=== PATIENT | female | born 1940 | race Caucasian/White ===

== ENCOUNTER 2017-11-23 22:06 | Inpatient (IN) ==
[2017-11-24] MEDS ORDERED: Dextrose 50% in Water 50 ML Vial IV.PUSH PRN ×2 (00:49→04:42)
[2017-11-24 00:52] LABS: Hematocrit 23.1 % (35.0-46.0); Hemoglobin 7.6 gm/dL (11.6-15.3); Mean Corpuscular Hemoglobin 27.5 pg (27.0-34.0); Mean Corpuscular Volume 83.5 fL (80.0-100.0); Mean Platelet Volume 8.2 fL (7.0-11.0); Platelet Count 203 th/mm3 (150-450); Red Blood Count 2.76 mil/mm3 (4.00-5.30); Red Cell Distribution Width 16.8 % (11.6-17.2); White Blood Count 13.6 th/mm3 (4.0-11.0)
[2017-11-24] MEDS: Norepinephrine Inj 4 MG in Sodium Chlor 0.9% Inj 246 ML IV.SIG PRN (01:04)
[2017-11-24 01:09] LABS: Calcium 8.4 mg/dL (8.5-10.1); Carbon Dioxide 34.1 meq/L (21.0-32.0); Potassium 3.2 meq/L (3.5-5.1)
[2017-11-24] MEDS ORDERED: Magnesium Oxide 400 MG Tablet PO PRN (01:40)
[2017-11-24] MEDS ORDERED: Potassium Phosphate Inj 30 MMOL in Sodium Chlor 0.9% Inj 250 ML IV.SIG PRN (01:40)
[2017-11-24] MEDS ORDERED: Magnesium Sulfate Inj 2 GM in Sodium Chlor 0.9% Inj 96 ML IV.SIG PRN (01:40)
[2017-11-24] MEDS ORDERED: Potassium Chlor 40 mEq Premix 40 MEQ/100 ML PIGGYBACK IV.SIG PRN (01:40)
[2017-11-24] MEDS ORDERED: Potassium Chlor 20 mEq Premix 20 MEQ/100 ML PIGGYBACK IV.SIG PRN ×2 (01:40)
[2017-11-24] MEDS ORDERED: Magnesium Sulfate Inj 4 GM in Sodium Chlor 0.9% Inj 92 ML IV.SIG PRN (01:40)
[2017-11-24] MEDS ORDERED: Potassium Chloride 25 MEQ Effervescent Tablet PO PRN (01:40)
[2017-11-24] MEDS ORDERED: Sodium Phosphate Inj 30 MMOL in Sodium Chlor 0.9% Inj 250 ML IV.SIG PRN (01:40)
[2017-11-24] MEDS ORDERED: Potassium Phosphate 500 MG Soluble Tablet PO PRN ×2 (01:40)
[2017-11-24] MEDS: Potassium Chlor 40 mEq Premix 40 MEQ/100 ML PIGGYBACK IV.SIG PRN ×2 (02:05→06:17)
--- NOTE | 2017-11-24 03:39 | P.CONCC ---
History of Present Illness Service: Critical Care Medicine Consult date: 11/24/17 Requesting Physician: Richard Gr Reason for Consult: hypotension, Afib RVR, GI bleed, Primary Care Provider: Wm Crystal Family Provider: Wm Crystal History of Present Illness: 77 yo female with past medical history of chronic diastolic heart failure, diabetes mellitus, atrial fibrillation and history of bilateral pulmonary embolism 7 years ago on chronic anticoagulation with warfarin, history of breast cancer status post lumpectomy, history of colorectal cancer status post R hemicolectomy by Dr. Mcmullen. She states she had routine lab work performed and her PCP told her to go to the ED due to anemia. At that point she had been experiencing melena with some garry blood in her stools for about 4 days. She states it is not uncommon for her to have some blood in her stools due to history of constipation and rectal fissures. The melena is unusual for her as she had discontinued iron supplementation. She was having one melena stool per day. She had felt fatigued but no vomiting, abdominal pain, chest pain, or SOB. She presented to [facility] on 11/22/17 with hemoglobin of 5.6, platelets 181, INR 4.2. She has received vitamin K 5 mg IV , 2 units of FFP and 2 units of packed red cells. She was hypotensive and started on Levophed. She has developed intermittent pulmonary edema and has been treated with BiPAP and intermittent Lasix. She underwent EGD 11/22/17 that demonstrated normal esophagus, 1 healing antral ulcer, normal duodenum. No obvious source of recent or active bleeding. Colonoscopy demonstrated solid black stool in the rectum, sigmoid and transverse colon. Unable to proceed to the right colon however no active bleeding noted. Patients daughter requested transfer to [facility] because she is known to Dr. Mcmullen from her prior partial colectomy. She was admitted by Dr. Gr. Glass Designer consult was requested because she now has Afib RVR. She has been on levophed 3 mcg/min since arrival. Hgb was 7.6 and she is receiving 1 unit PRBC over 4 hours. She is primarily complaining of restless legs. She says she hasn't had any additional BM's since 11/22. [facility] - History History Provided By: Patient - Medical History Medical History: Medical History (Last Updated 11/24/17 @ 07:20 by Jeny Lu MD) Atrial fibrillation with RVR Diabetes mellitus Diastolic heart failure HX: breast cancer History of colon cancer Hx of radiation therapy Hx pulmonary embolism - Surgical History Surgical History: Surgical History (Last Updated 11/24/17 @ 07:21 by Jeny Lu MD) H/O cardiac catheterization H/O carotid endarterectomy H/O esophagogastroduodenoscopy H/O right hemicolectomy H/O ventral hernia repair Hx of colonoscopy S/P appy - Family History Family History: Family History (Last Updated 11/24/17 @ 07:23 by Jeny Lu MD) Sister Pulmonary embolism Mother Stroke Uterine cancer Father Stroke - Social History I have reviewed the patient's Social History: Yes - Tobacco History Second Hand Smoke Exposure: No Smoking Status: Former smoker Tobacco Type: Cigarettes - Alcohol History How Often Do You Have a Drink Containing Alcohol: Never - Substance Use History Substance History: No History of Abuse Medications and Allergies Active Medications: Active Medications Dextrose (D50w Vial) 50 ml IV.PUSH UNSCH PRN PRN Reason: PER HYPOGLYCEMIA PROTOCOL Glucagon (Glucagon Inj) 1 mg OTHER PRN PRN PRN Reason: for Hypoglycemia Protocol Lactated Ringer's (Lr 1000 Ml Inj) 1,000 mls @ 30 mls/hr IV.SIG .Q24H FIGUEROA Last Admin: 11/24/17 01:03 Dose: 30 mls/hr Norepinephrine Bitartrate 4 mg (/ Sodium Chloride) 250 mls @ 7.5 mls/hr IV.SIG TITRATE PRN; Protocol PRN Reason: Per Protocol Last Admin: 11/24/17 01:04 Dose: 3 mcg/min, 11.25 mls/hr Magnesium Sulfate 4 gm/ Sodium (Chloride) 100 mls @ 50 mls/hr IV.SIG UNSCH PRN PRN Reason: For Magnesium 0.9 - 1.1 mg/dL Magnesium Sulfate 2 gm/ Sodium (Chloride) 100 mls @ 50 mls/hr IV.SIG UNSCH PRN PRN Reason: For Magnesium 1.2 - 1.6 mg/dL Potassium Chloride (Kcl 40 Meq Premix Inj) 40 meq in 100 mls @ 25 mls/hr IV.SIG Q2H PRN PRN Reason: For Potassium 2.8 - 3.2 mEq/L Last Admin: 11/24/17 02:05 Dose: 25 mls/hr Potassium Chloride (Kcl 20 Meq Premix Inj) 20 meq in 100 mls @ 50 mls/hr IV.SIG Q2H PRN PRN Reason: For Potassium 3.3 - 3.5 mEq/L Potassium Chloride (Kcl 40 Meq Premix Inj) 40 meq in 100 mls @ 25 mls/hr IV.SIG UNSCH PRN PRN Reason: For Potassium 3.3 - 3.5 mEq/L Potassium Chloride (Kcl 20 Meq Premix Inj) 20 meq in 100 mls @ 50 mls/hr IV.SIG Q2H PRN PRN Reason: For Potassium 2.8 - 3.2 mEq/L Potassium Phosphate 30 mmol/ (Sodium Chloride) 260 mls @ 42 mls/hr IV.SIG UNSCH PRN PRN Reason: SEE LABEL COMMENTS Sodium Phosphate 30 mmol/ (Sodium Chloride) 260 mls @ 42 mls/hr IV.SIG UNSCH PRN PRN Reason: For Phosphorus < 2.5 mg/dL Insulin Human Regular (Novolin R Correctional Sugar Inj) 0 units SQ Q6HR FIGUEROA; Protocol Magnesium Oxide (Mag-Ox) 800 mg PO UNSCH PRN PRN Reason: For Magnesium 1.2 - 1.6 mg/dL Pantoprazole Sodium (Protonix Inj) 40 mg IV.SIG Q12HR FIGUEROA Potassium Bicarb/Potassium Chloride (K-Lyte Cl Eff) 50 meq PO UNSCH PRN PRN Reason: For Potassium 3.3 - 3.5 mEq/L Potassium Phosphate (K-Phos Original) 2,000 mg PO Q4H PRN PRN Reason: Phosphorus Less Than 2.5 mg/dL Potassium Phosphate (K-Phos Original) 2,000 mg PO UNSCH PRN PRN Reason: SEE LABEL COMMENTS Terbutaline Sulfate (Brethine Inj) 1 mg SQ UNSCH PRN PRN Reason: For Extravasation Allergies Allergy/AdvReac Type Severity Reaction Status Date / Time No Known Allergies Allergy Uncoded 04/29/15 21:07 Home Medications Medication Instructions Recorded Confirmed Type anastrozole 1 mg PO DAILY 11/24/17 11/24/17 History aspirin 81 mg PO DAILY 11/24/17 11/24/17 History calcium carbonate 600 mg PO BID 11/24/17 11/24/17 History folic acid 0.8 mg PO DAILY 11/24/17 11/24/17 History furosemide 40 mg PO DAILY 11/24/17 11/24/17 History insulin NPH and regular human 1 sliding scale dose SUBCUT UD 11/24/17 11/24/17 History [Novolin 70/30 U-100 Insulin] lovastatin 20 mg PO DAILY 11/24/17 11/24/17 History metformin 1,000 mg PO BID 11/24/17 11/24/17 History pioglitazone 30 mg PO DAILY 11/24/17 11/24/17 History ranitidine HCl 300 mg PO DAILY 11/24/17 11/24/17 History warfarin See Label Instructions .ROUTE 11/24/17 11/24/17 History .COMPLEX warfarin See Label Instructions .ROUTE 11/24/17 11/24/17 History .COMPLEX Physical Exam Vital signs: Vital Signs 11/24/17 01:00 11/24/17 02:18 11/24/17 02:35 Temperature 98.4 F 98.3 F Pulse Rate 84 79 88 Respiratory Rate 23 20 16 Blood Pressure 132/61 85/48 L 112/56 L Pulse Oximetry 100 99 100 Intake & Output 11/23/17 11/23/17 11/24/17 06:59 18:59 06:59 Intake Total 0 / 0 Balance 0 / 0 Weight 107.4 kg Intake: Intake (Blood Product) Amt 0 / 0 Rbc As-3 Leukoreduced Unit 0 / 0 [id number] Other: Date of Last Bowel Movement 11/21/17 Weight On Admission 107.4 kg Narrative: GENERAL: Well-nourished, well-developed patient sitting up in bed , distressed about her restless leg movements. SKIN: Warm and dry. HEAD: Atraumatic. Normocephalic. EYES: Pupils equal and round. No scleral icterus. No injection or drainage. ENT: No nasal bleeding or discharge. Mucous membranes pink and moist. NECK: Trachea midline. No JVD. CARDIOVASCULAR: irregularly irregular 2/6 systolic murmur LLSB. RESPIRATORY: Breathing comfortably with no accessory muscle use. CTAB. No wheeze. on NC. GASTROINTESTINAL: Abdomen soft, non-tender, nondistended. Bowel sounds present. MUSCULOSKELETAL: Extremities without clubbing, cyanosis. Trace edema. NEUROLOGICAL: Awake and alert, moving legs repeatedly. Oriented x3. No obvious cranial nerve deficits. Moves all extremities with no focal deficit. Normal speech. Assessment and Plan - Assessment and Plan Plan: NEURO: Restless leg syndrome Ropinirole 0.25 mg po qhs. RESP: Prior history of tobacco abuse Has been on bipap intermittently for pulmonary edema at outside hospital. Currently comfortable on NC. She is agreeable to intubation if needed for respiratory failure. CV: Atrial fibrillation with RVR Coronary artery disease Status post left carotid endarterectomy Chronic diastolic heart failure Troponin at outside hospital was within normal range range for their lab. BNP was 460. Lactic acid was 1.4 On Levophed to maintain mean arterial pressure greater than 65 Initiating digoxin for rate control. Follow-up digoxin level in a.m. 11/25. Lasix 40 mg p.o. daily GI: GI bleeding Chronic constipation GERD History of right hemicolectomy for colon cancer EGD and colonoscopy at outside hospital were unrevealing. May be small bowel source of bleeding. Serial hemoglobin, resuscitating with packed red cells and avoiding excessive crystalloid resuscitation in view of diastolic heart failure NPO with diet advancement per colorectal surgery. Workup for bleeding per colorectal surgery. Continue Protonix 40 mill grams p.o. twice daily. FEN/RENAL: Garcia is in place per outside hospital. Monitor intake and output. Monitor electrolytes and replace as indicated per electrolyte replacement protocol. ID: White blood cell count at outside hospital was 6.2 on 11/22. Urinalysis was negative. She has been on Zosyn empirically for the possibility of sepsis. She does not appear to be septic. Contacted outside hospital. There were no blood cultures drawn. Noted she does have leukocytosis now, would recommend R femoral line be changed to R subclavian or IJ. Will check blood cultures now. I am holding off on antibiotics at this time. If it is determined antibiotics will be needed, would avoid Zosyn because sodium load will exacerbate her issues with pulmonary edema/overload. Check UA now. HEME: On chronic anti-coagulation with warfarin. INR was supratherapeutic 11/22 (4.2) History of bilateral pulmonary emboli, reportedly unprovoked and on life long anticoagulation for this according to patient (she is not aware of prior diagnosis of Afib) History of breast cancer status post lumpectomy and radiation. On anastrozole. History of colorectal cancer status post right hemicolectomy ENDO: Insulin-dependent diabetes mellitus Monitor bedside glucose every 6 hours and administer low-dose insulin sliding scale as indicated. PROPH: SCD for DVT prophylaxis. Avoid pharmacologic DVT prophylaxis at this point due to concern for hemorrhage. Protonix as per above ACCESS: Right femoral central venous line was placed 11/23/17 by mud mixer operator at [facility] She is capacitated for medical decision-making. She says she is DNR in the event of pulseless arrest. She would be agreeable to intubation if needed for GI procedure or if she develops respiratory distress. Alternate code intubation only Level 3 consult
[2017-11-24] MEDS ORDERED: Digoxin Inj 500 MCG/2 ML Ampul IV.PUSH ONE (04:36)
[2017-11-24 05:27] LABS: Hematocrit 25.6 % (35.0-46.0); Hemoglobin 8.5 gm/dL (11.6-15.3)
[2017-11-24 05:38] LABS: Activated Partial Thrombo Time 25.6 sec (24.3-30.1); INR 1.3 Ratio; Prothrombin Time 12.9 sec (9.8-11.6)
[2017-11-24] MEDS ORDERED: Insulin NovoLIN Regular Correctional Sugar Inj SQ SCH (06:00)
--- NOTE | 2017-11-24 06:54 | XR ---
EXAM DATE: 11/24/2017 12:00 AM EDT AGE/SEX: 77 years / Female INDICATIONS: Shortness of breath. CLINICAL DATA: This is the patient's subsequent encounter. Patient reports that signs and symptoms h ave been present for 2 days and indicates a pain score of 0/10. MEDICAL/SURGICAL HISTORY: Hypertension. Diabetes mellitus type II. Chronic obstructive pulmon marga disease. Congestive heart failure. None. COMPARISON: [facility], CHEST 1V SINGLE AP, 10/23/2017. . FINDINGS: The heart size is enlarged. There is mild increased density at the medial right base. Costophrenic an gles are clear. Clips are seen in the left axillary region. CONCLUSION: Cardiomegaly. Mild consolidation or atelectasis at the medial right base. Electronically signed by: Richard Morris MD 11/24/2017 6:52 AM EDT
[2017-11-24 07:46] LABS: Bilirubin,Urine Negative (Negative); Clarity,Urine Clear (Clear); Color,Urine Straw (Yellw/Straw); Glucose,Urine (UA) 150 mg/dL (Negative); Leukocyte Esterase,Urine Negative (Negative); Mucus,Urine Few /lpf (Occasional); Nitrite,Urine Negative (Negative); Specific Gravity,Urine 1.006 (1.002-1.035)
[2017-11-24] MEDS: Pantoprazole Inj 40 MG Vial IV.SIG SCH ×2 (08:37→20:24)
[2017-11-24] MEDS: Senna/Docusate Sodium 8.6/50 MG Tablet PO SCH ×2 (08:37→20:23)
[2017-11-24] MEDS: Folic Acid 1 MG Tablet PO SCH (08:37)
--- NOTE | 2017-11-24 09:33 | MH ---
cc: Richard Gr MD, Cheryl M MD DATE OF ADMISSION: 11/23/2017 CHIEF COMPLAINT: Lower GI bleed. HISTORY OF PRESENT ILLNESS: This 77-year-old patient is well known to our service. Dr. Mcmullen did an ascending colectomy on her in 02/2015 for a colon carcinoma. She has had no evidence of recurrence and has followed up with Dr. Mcmullen since that time. She had a followup colonoscopy by Dr. Mcmullen in 11/2016 showing only diverticulosis and no evidence of any recurrence. The patient has a past history of chronic diastolic heart failure, diabetes mellitus, atrial fibrillation, history of bilateral pulmonary emboli 7 years ago, and has had breast cancer. She has been on chronic anticoagulation with Coumadin. She had routine lab work performed with her primary care physician approximately 3-4 days ago, her hemoglobin was around 7.1. At that time, he told her to go to the emergency room due to anemia. At that point, she had been experiencing some small amounts of blood, sometimes black. She attributes this to her hemorrhoids. She says that she is constipated chronically and does not pay much attention to it. When she went to the emergency department a couple of days ago, her hemoglobin was down to 5.9. She had had no profuse GI bleeding and this seems mostly to be a chronic anemia. She was hypertherapeutic with her Coumadin. Her INR at that time was 4.2. She received vitamin K and 2 units of fresh frozen plasma as well as 2 units of packed red blood cells. Her hemoglobin yesterday at 6 p.m. was 7.9. The patient was comfortable, according to Dr. Thorne, the transferring physician from [facility] and she had undergone an upper GI endoscopy and a colonoscopy that seems as if they saw the whole colon, according to Dr. Thorne, but the family was under some perception that they did not see everything. Of course, the small bowel, cannot be visualized on endoscopy. Nevertheless, she was not having any active bleeding and we accepted her in transfer. On arrival, she was found to have a hemoglobin of 7.6 and a unit of packed red blood cells was transfused. In the meantime, she developed some mild rapid ventricular rate with her atrial fibrillation and critical care associate producer was consulted. Dr. Lu saw the patient and evaluated her, and the unit of blood was completed. The patient says that she is chronically constipated. She uses MiraLax and has not had a bowel motion for 2 days. Also, on arrival, she was on this low dose of Levophed, which has been tapered down somewhat. She has a femoral line present that was placed the day prior to this dictation in [place]. Past medical history, family history, social history, review of systems is seen in the HPI. Again, she has had a carotid endarterectomy, right hemicolectomy, breast cancer, diastolic heart failure, diabetes, atrial fibrillation, pulmonary embolism. PHYSICAL EXAMINATION: GENERAL: Well-developed, obese female in no acute distress. SKIN: Warm and dry. HEENT: Extraocular muscles intact. NECK: Supple. ABDOMEN: Obese, soft, nontender, no masses. She does have a right-sided scar from her previous hemicolectomy. She may have a ventral hernia present there, although there is nothing incarcerated there. She has no abdominal pain. RECTAL: Reveals a large amount of solid stool in the rectum, which is brown in nature. There is no blood or black stool present on digital exam. EXTREMITIES: Range of motion within normal limits. NEUROLOGIC: Grossly normal. IMPRESSION: A 77-year-old patient with multiple medical problems with a chronic lower gastrointestinal bleed, possibly related only to her hemorrhoids, on anticoagulation, since she has a large amount of solid stool, which is basically brown in her rectum. It does not appear to be typical of diverticular GI bleed. She is stable from her bleeding standpoint and Critical Care Medicine is reviewing her heart status and Levophed, and they will deal with her femoral lines and so forth. We will not place her on anticoagulation at this time. I will start her on full liquids today, but I think that we can rapidly move her diet up and get her out of bed, so that she does not become deconditioned. I do not think at this time, she needs any endoscopy as she does not appear to be acutely bleeding and it is highly unlikely that this is recurrent carcinoma. MD JNUAID Hrebert/sumaya , 08:54 AM , 09:05 AM
[2017-11-24] MEDS: Anastrozole 1 MG Tablet PO SCH (09:39)
--- NOTE | 2017-11-24 09:48 | ECG ---
Date Performed: 11/24/2017 Time Performed: 03:13:54 PTAGE: 77 years EKG: Atrial fibrillation with rapid ventricular response with multifocal PVCs or aberrant ventri cular conduction Leftward axis IV conduction defect Possible lateral infarct - age undetermined LVH w ith secondary repolarization abnormality Nonspecific ST and T wave abnormalities Abnormal ECG Compare d to prior electrocardiogram, Atrial fibrillation has replaced Sinus rhythm . DOCTOR: Amari Cannon Interpretating Date/Time 11/24/2017 09:46:28
[2017-11-24] MEDS: Insulin NovoLOG Aspart Correctional Sugar Inj SQ SCH ×4 (10:15→20:59)
[2017-11-24] MEDS: Polyethylene Glycol 3350 17 GM Packet PO SCH ×3 (10:56→19:11)
[2017-11-24 12:22] LABS: Hematocrit 25.7 % (35.0-46.0); Hemoglobin 8.6 gm/dL (11.6-15.3)
[2017-11-24] MEDS: Digoxin Inj 500 MCG/2 ML Ampul IV.PUSH SCH ×2 (16:20→22:47)
[2017-11-24 19:54] LABS: Hematocrit 28.2 % (35.0-46.0); Hemoglobin 9.1 gm/dL (11.6-15.3)
[2017-11-24] MEDS: Acetaminophen 325 MG Tablet PO PRN (21:12)
[2017-11-25] MEDS: Norepinephrine Inj 4 MG in Sodium Chlor 0.9% Inj 246 ML IV.SIG PRN (00:10)
[2017-11-25 01:10] LABS: Hematocrit 25.4 % (35.0-46.0); Hemoglobin 8.3 gm/dL (11.6-15.3)
[2017-11-25] MEDS ORDERED: Chlorhexidine Gluconate 2% 1 Pack (2 Cloths) TOPICAL PRN (04:00)
[2017-11-25] MEDS: Chlorhexidine Gluconate 2% 1 Pack (2 Cloths) TOPICAL SCH (04:52)
[2017-11-25 04:58] LABS: Baso # (Auto) 0.1 th/mm3 (0.0-0.2); Baso % (Auto) 0.8 % (0.0-2.0); Eos # (Auto) 0.3 th/mm3 (0.0-0.4); Eos % (Auto) 3.6 % (0.0-4.0); Hematocrit 25.7 % (35.0-46.0); Hemoglobin 8.3 gm/dL (11.6-15.3); Lymph # (Auto) 2.8 th/mm3 (1.0-4.8); Lymph % (Auto) 35.8 % (9.0-44.0); Mean Corpuscular HGB Conc 32.1 % (32.0-36.0); Mean Corpuscular Hemoglobin 27.2 pg (27.0-34.0); Mean Corpuscular Volume 84.6 fL (80.0-100.0); Mean Platelet Volume 7.9 fL (7.0-11.0); Mono # (Auto) 0.9 th/mm3 (0.0-0.9); Mono % (Auto) 11.1 % (0.0-8.0); Neut # (Auto) 3.8 th/mm3 (1.8-7.7); Neut % (Auto) 48.7 % (16.0-70.0); Platelet Count 131 th/mm3 (150-450); Red Blood Count 3.04 mil/mm3 (4.00-5.30); Red Cell Distribution Width 16.7 % (11.6-17.2); White Blood Count 7.9 th/mm3 (4.0-11.0)
[2017-11-25 05:32] LABS: Calcium 8.9 mg/dL (8.5-10.1); Carbon Dioxide 32.7 meq/L (21.0-32.0); Potassium 3.9 meq/L (3.5-5.1)
[2017-11-25] MEDS: Insulin NovoLOG Aspart Correctional Sugar Inj SQ SCH ×4 (07:58→21:28)
[2017-11-25] MEDS: Anastrozole 1 MG Tablet PO SCH (08:06)
[2017-11-25] MEDS: Folic Acid 1 MG Tablet PO SCH (08:06)
[2017-11-25] MEDS: Furosemide 40 MG Tablet PO SCH (08:06)
[2017-11-25] MEDS: Polyethylene Glycol 3350 17 GM Packet PO SCH ×3 (08:06→17:51)
[2017-11-25] MEDS: Pantoprazole Inj 40 MG Vial IV.SIG SCH ×2 (08:07→21:29)
[2017-11-25] MEDS: Senna/Docusate Sodium 8.6/50 MG Tablet PO SCH ×2 (08:07→21:28)
[2017-11-25 13:02] LABS: Hematocrit 29.2 % (35.0-46.0); Hemoglobin 9.4 gm/dL (11.6-15.3)
--- NOTE | 2017-11-25 16:40 | P.PNCC ---
Subjective Subjective Remarks/Hospital Course: 77 yo female with past medical history of chronic diastolic heart failure, diabetes mellitus, atrial fibrillation and history of bilateral pulmonary embolism 7 years ago on chronic anticoagulation with warfarin, history of breast cancer status post lumpectomy, history of colorectal cancer status post R hemicolectomy by Dr. Mcumllen. She states she had routine lab work performed and her PCP told her to go to the ED due to anemia. At that point she had been experiencing melena with some garry blood in her stools for about 4 days. She states it is not uncommon for her to have some blood in her stools due to history of constipation and rectal fissures. The melena is unusual for her as she had discontinued iron supplementation. She was having one melena stool per day. She had felt fatigued but no vomiting, abdominal pain, chest pain, or SOB. She presented to [facility] on 11/22/17 with hemoglobin of 5.6, platelets 181, INR 4.2. She has received vitamin K 5 mg IV , 2 units of FFP and 2 units of packed red cells. She was hypotensive and started on Levophed. She has developed intermittent pulmonary edema and has been treated with BiPAP and intermittent Lasix. She underwent EGD 11/22/17 that demonstrated normal esophagus, 1 healing antral ulcer, normal duodenum. No obvious source of recent or active bleeding. Colonoscopy demonstrated solid black stool in the rectum, sigmoid and transverse colon. Unable to proceed to the right colon however no active bleeding noted. Patients daughter requested [place] [facility] because she is known to Dr. Mcmullen from her prior partial colectomy. She was admitted by Dr. Gr. Lineman A Class consult was requested because she now has Afib RVR. She has been on levophed 3 mcg/min since arrival. Hgb was 7.6 and she is receiving 1 unit PRBC over 4 hours. She is primarily complaining of restless legs. She says she hasn't had any additional BM's since 11/22. 11/25: Hemoglobin stable. No signs of bleeding. Breathing with acceptable comfort. Levophed has been off intermittently but her mean arterial pressure eventually drops below 65. Her urine output has remained excellent. Objective Vital Signs / I&O: Vital Signs 11/24/17 20:00 11/24/17 20:17 11/24/17 21:00 Temperature 98.0 F Pulse Rate 74 82 Respiratory Rate Blood Pressure 105/50 L 116/55 L Pulse Oximetry 100 100 97 11/24/17 21:40 11/24/17 22:00 11/24/17 23:00 Temperature Pulse Rate 80 72 Respiratory Rate 19 Blood Pressure 110/52 L 140/65 Pulse Oximetry 95 96 11/25/17 00:00 11/25/17 01:00 11/25/17 02:00 Temperature 98.2 F Pulse Rate 72 68 72 Respiratory Rate Blood Pressure 87/45 L 115/62 121/58 L Pulse Oximetry 98 96 96 11/25/17 03:00 11/25/17 04:00 11/25/17 05:00 Temperature 98.2 F Pulse Rate 65 66 64 Respiratory Rate Blood Pressure 128/60 151/69 H 119/53 L Pulse Oximetry 95 98 95 11/25/17 06:00 11/25/17 08:00 11/25/17 12:00 Temperature 98 F 97.9 F Pulse Rate 84 66 72 Respiratory Rate 11 L 21 Blood Pressure 142/63 H 135/60 74/40 L Pulse Oximetry 93 L 100 100 Intake & Output 11/24/17 11/25/17 11/25/17 18:59 06:59 18:59 Intake Total 500 / 500 1250 / 1250 Output Total 1250 / 1250 Balance -750 / -750 1250 / 1250 Weight 109.2 kg Intake: IV 100 / 100 1250 / 1250 LR 1000 mL Inj 1,000 ML @ 30 1000 / 1000 mls/hr IV.SIG .Q24H FIGUEROA Rx#: [id number] Levophed Inj 4 MG In NS Inj 246 250 / 250 ML @ 2 MCG/MIN 7.5 mls/hr IV. SIG TITRATE PRN Rx#:[id number] KCl 40 mEq Premix Inj 40 meq In 100 / 100 100 ml @ 25 mls/hr IV.SIG Q2H PRN Rx#:[id number] Intake (Blood Product) Amt 400 / 400 Rbc As-3 Leukoreduced Unit 400 / 400 [id number] Output: Urine Amount (Catheter) 1250 / 1250 Indwelling Urethral Catheter 1250 / 1250 Other: Date of Last Bowel Movement 11/21/17 11/21/17 11/21/17 Result Diagrams: 11/25/17 12:30 11/25/17 04:30 Objective Remarks: Narrative: GENERAL: Well-nourished, well-developed patient sitting up in bed, distressed about her restless leg movements. SKIN: Warm and dry. HEAD: Atraumatic. Normocephalic. EYES: Pupils equal and round. No scleral icterus. No injection or drainage. ENT: No nasal bleeding or discharge. Mucous membranes pink and moist. NECK: Trachea midline. Airway widely patent, no obstructive noises. CARDIOVASCULAR: irregularly irregular 2/6 systolic murmur left sternal border and apex. RESPIRATORY: Breathing comfortably with no accessory muscle use. CTAB. No wheeze. on NC. GASTROINTESTINAL: Abdomen soft, non-tender, nondistended. Bowel sounds present. MUSCULOSKELETAL: Extremities without clubbing, cyanosis. Trace edema. Well- perfused. NEUROLOGICAL: Awake and alert, moving legs repeatedly. Oriented x3. No obvious cranial nerve deficits. Moves all extremities with no focal deficit. Normal speech. Assessment and Plan - Assessment and Plan Plan: NEURO: Restless leg syndrome Ropinirole 0.25 mg po qhs. RESP: Prior history of tobacco abuse Has been on bipap intermittently for pulmonary edema at outside hospital. Currently comfortable on NC. She is agreeable to intubation if needed for respiratory failure. CV: Atrial fibrillation with RVR Coronary artery disease Status post left carotid endarterectomy Chronic diastolic heart failure Troponin at outside hospital was within normal range range for their lab. BNP was 460. Lactic acid was 1.4 On Levophed to maintain mean arterial pressure greater than 65 Initiating digoxin for rate control. Follow-up digoxin level in a.m. 11/25. Lasix 40 mg p.o. daily GI: GI bleeding Chronic constipation GERD History of right hemicolectomy for colon cancer EGD and colonoscopy at outside hospital were unrevealing. May be small bowel source of bleeding. Serial hemoglobin, resuscitating with packed red cells and avoiding excessive crystalloid resuscitation in view of diastolic heart failure NPO with diet advancement per colorectal surgery. Workup for bleeding per colorectal surgery. Continue Protonix 40 mill grams p.o. twice daily. FEN/RENAL: Garcia is in place per outside hospital. Monitor intake and output. Monitor electrolytes and replace as indicated per electrolyte replacement protocol. Discontinue Garcia anytime. ID: White blood cell count at outside hospital was 6.2 on 11/22. Urinalysis was negative. She has been on Zosyn empirically for the possibility of sepsis. She does not appear to be septic. Contacted outside hospital. There were no blood cultures drawn. Noted she does have leukocytosis now, would recommend R femoral line be changed to R subclavian or IJ. Will check blood cultures now. I am holding off on antibiotics at this time. If it is determined antibiotics will be needed, would avoid Zosyn because sodium load will exacerbate her issues with pulmonary edema/overload. Check UA now. HEME: On chronic anti-coagulation with warfarin. INR was supratherapeutic 11/22 (4.2) History of bilateral pulmonary emboli, reportedly unprovoked and on life long anticoagulation for this according to patient (she is not aware of prior diagnosis of Afib) History of breast cancer status post lumpectomy and radiation. On anastrozole. History of colorectal cancer status post right hemicolectomy ENDO: Insulin-dependent diabetes mellitus Monitor bedside glucose every 6 hours and administer low-dose insulin sliding scale as indicated. PROPH: SCD for DVT prophylaxis. Avoid pharmacologic DVT prophylaxis at this point due to concern for hemorrhage. Protonix as per above ACCESS: Right femoral central venous line was placed 11/23/17 by padding gluer at [facility]. Discontinued today. She is capacitated for medical decision-making. She says she is DNR in the event of pulseless arrest. She would be agreeable to intubation if needed for GI procedure or if she develops respiratory distress. Overall impression: Patient is warm and well-perfused with good urine output. Will attempt mid a drain just to allow us to get off the levo fed. Otherwise stable and breathing comfortably.
--- NOTE | 2017-11-25 16:55 | P.PNCS ---
Subjective Interval history: afebrile, VSS UO good NO BRB acosta PO Objective Result Diagrams: 11/25/17 12:30 11/25/17 04:30 Objective Remarks: PE alert Abd - soft, obese, non-tender, no bleeding Assessment and Plan - Plan Imp: HR slowed acosta POlax avoid straining DC plans
[2017-11-25 18:38] LABS: Hematocrit 24.9 % (35.0-46.0); Hemoglobin 8.3 gm/dL (11.6-15.3)
[2017-11-26] MEDS: Chlorhexidine Gluconate 2% 1 Pack (2 Cloths) TOPICAL SCH (03:46)
[2017-11-26] MEDS: Polyethylene Glycol 3350 17 GM Packet PO SCH ×3 (09:06→17:41)
[2017-11-26] MEDS: Folic Acid 1 MG Tablet PO SCH (09:06)
[2017-11-26] MEDS: Senna/Docusate Sodium 8.6/50 MG Tablet PO SCH ×2 (09:06→20:16)
[2017-11-26] MEDS: Furosemide 40 MG Tablet PO SCH (09:06)
[2017-11-26] MEDS: Anastrozole 1 MG Tablet PO SCH (09:06)
[2017-11-26] MEDS: Pantoprazole Inj 40 MG Vial IV.SIG SCH ×2 (09:07→20:15)
[2017-11-26] MEDS: Insulin NovoLOG Aspart Correctional Sugar Inj SQ SCH ×4 (09:31→20:16)
--- NOTE | 2017-11-26 13:05 | P.PNCC ---
Subjective Subjective Remarks/Hospital Course: 77 yo female with past medical history of chronic diastolic heart failure, diabetes mellitus, atrial fibrillation and history of bilateral pulmonary embolism 7 years ago on chronic anticoagulation with warfarin, history of breast cancer status post lumpectomy, history of colorectal cancer status post R hemicolectomy by Dr. Mcmullen. She states she had routine lab work performed and her PCP told her to go to the ED due to anemia. At that point she had been experiencing melena with some garry blood in her stools for about 4 days. She states it is not uncommon for her to have some blood in her stools due to history of constipation and rectal fissures. The melena is unusual for her as she had discontinued iron supplementation. She was having one melena stool per day. She had felt fatigued but no vomiting, abdominal pain, chest pain, or SOB. She presented to [facility] on 11/22/17 with hemoglobin of 5.6, platelets 181, INR 4.2. She has received vitamin K 5 mg IV , 2 units of FFP and 2 units of packed red cells. She was hypotensive and started on Levophed. She has developed intermittent pulmonary edema and has been treated with BiPAP and intermittent Lasix. She underwent EGD 11/22/17 that demonstrated normal esophagus, 1 healing antral ulcer, normal duodenum. No obvious source of recent or active bleeding. Colonoscopy demonstrated solid black stool in the rectum, sigmoid and transverse colon. Unable to proceed to the right colon however no active bleeding noted. Patients daughter requested transfer to [facility] because she is known to Dr. Mcmullen from her prior partial colectomy. She was admitted by Dr. Gr. Rehabilitation Tech consult was requested because she now has Afib RVR. She has been on levophed 3 mcg/min since arrival. Hgb was 7.6 and she is receiving 1 unit PRBC over 4 hours. She is primarily complaining of restless legs. She says she hasn't had any additional BM's since 11/22. 11/25: Hemoglobin stable. No signs of bleeding. Breathing with acceptable comfort. Levophed has been off intermittently but her mean arterial pressure eventually drops below 65. Her urine output has remained excellent. 11/26: Hemoglobin stable. Remains warm and well-perfused. Levo fed off for 24 hours but she has required Midodrine. Can probably taper off Midodrine over 2- 3 days. Glucose not well controlled. Now that she is eating better and more reliably we will restart her Novolin 70/30 twice daily. It is also safe to restart her metformin twice daily at this time. She takes Farxiga at home and can restart that when she gets home. Objective Vital Signs / I&O: Vital Signs 11/25/17 16:00 11/25/17 20:00 11/26/17 00:00 Temperature 97.9 F 98.0 F 98.3 F Pulse Rate 80 70 71 Respiratory Rate 22 23 12 Blood Pressure 159/68 H 92/42 L 103/47 L Pulse Oximetry 98 100 97 11/26/17 04:00 Temperature 98.2 F Pulse Rate 60 Respiratory Rate 14 Blood Pressure 92/55 L Pulse Oximetry 96 Intake & Output 11/25/17 11/26/17 11/26/17 18:59 06:59 18:59 Intake Total 520 / 520 1000 / 1000 Output Total 1000 / 1000 700 / 700 Balance -480 / -480 300 / 300 Weight 110.7 kg Intake: IV 1000 / 1000 LR 1000 mL Inj 1,000 ML @ 30 1000 / 1000 mls/hr IV.SIG .Q24H FIGUEROA Rx#: [id number] Oral 520 / 520 Output: Urine Amount (Catheter) 1000 / 1000 700 / 700 Indwelling Urethral Catheter 1000 / 1000 700 / 700 Other: Date of Last Bowel Movement 11/21/17 11/21/17 11/21/17 # Bowel Movements 0 Result Diagrams: 11/25/17 18:00 11/25/17 04:30 Objective Remarks: Narrative: GENERAL: Alert, conversant. SKIN: Warm and dry. HEAD: Atraumatic. Normocephalic. EYES: Pupils equal and round. No scleral icterus. No injection or drainage. ENT: No nasal bleeding or discharge. Mucous membranes pink and moist. NECK: Trachea midline. Airway widely patent, no obstructive noises. CARDIOVASCULAR: irregularly irregular 2/6 systolic murmur left sternal border and apex. Ventricular response rate well controlled. RESPIRATORY: Breathing comfortably with no accessory muscle use. CTAB. No wheeze. on NC. GASTROINTESTINAL: Abdomen soft, non-tender, nondistended. Bowel sounds present. No guarding. MUSCULOSKELETAL: Extremities without clubbing, cyanosis. Trace edema. Well- perfused. NEUROLOGICAL: Awake and alert. Oriented x3. No obvious cranial nerve deficits. Moves all extremities with no focal deficit. Normal speech. Assessment and Plan - Assessment and Plan Plan: NEURO: Restless leg syndrome Ropinirole 0.25 mg po qhs. RESP: Prior history of tobacco abuse Has been on bipap intermittently for pulmonary edema at outside hospital. Currently comfortable on NC. She is agreeable to intubation if needed for respiratory failure. CV: Atrial fibrillation with RVR Coronary artery disease Status post left carotid endarterectomy Chronic diastolic heart failure Troponin at outside hospital was within normal range range for their lab. BNP was 460. Lactic acid was 1.4 On Levophed to maintain mean arterial pressure greater than 65 Initiating digoxin for rate control. Follow-up digoxin level in a.m. 11/25. Continue Lasix 40 mg p.o. daily GI: GI bleeding Chronic constipation GERD History of right hemicolectomy for colon cancer EGD and colonoscopy at outside hospital were unrevealing. May be small bowel source of bleeding. Serial hemoglobin, resuscitating with packed red cells and avoiding excessive crystalloid resuscitation in view of diastolic heart failure NPO with diet advancement per colorectal surgery. Workup for bleeding per colorectal surgery. Continue Protonix 40 mill grams p.o. twice daily. FEN/RENAL: Garcia is in place per outside hospital. Monitor intake and output. Monitor electrolytes and replace as indicated per electrolyte replacement protocol. Discontinue Garcia anytime. ID: White blood cell count at outside hospital was 6.2 on 11/22. Urinalysis was negative. She has been on Zosyn empirically for the possibility of sepsis. She does not appear to be septic. Contacted outside hospital. There were no blood cultures drawn. Noted she does have leukocytosis now, would recommend R femoral line be changed to R subclavian or IJ. Will check blood cultures now. I am holding off on antibiotics at this time. If it is determined antibiotics will be needed, would avoid Zosyn because sodium load will exacerbate her issues with pulmonary edema/overload. Check UA now. HEME: On chronic anti-coagulation with warfarin. INR was supratherapeutic 11/22 (4.2) History of bilateral pulmonary emboli, reportedly unprovoked and on life long anticoagulation for this according to patient (she is not aware of prior diagnosis of Afib) History of breast cancer status post lumpectomy and radiation. On anastrozole. History of colorectal cancer status post right hemicolectomy ENDO: Insulin-dependent diabetes mellitus Monitor bedside glucose every 6 hours and administer low-dose insulin sliding scale as indicated. Restarted Novolin units twice daily, restarted metformin 1000 mg p.o. twice daily. PROPH: SCD for DVT prophylaxis. Avoid pharmacologic DVT prophylaxis at this point due to concern for hemorrhage. Protonix as per above ACCESS: Right femoral central venous line was placed 11/23/17 by game manager at [facility]. Discontinued 2 days ago. She is capacitated for medical decision-making. She says she is DNR in the event of pulseless arrest. She would be agreeable to intubation if needed for GI procedure or if she develops respiratory distress. Overall impression: Patient is warm and well-perfused with good urine output. She is now off levo fed for over 24 hours and doing well on Midodrine. We will taper this off now. Blood sugar well be much more well controlled on her home insulin regimen now.
--- NOTE | 2017-11-26 21:38 | P.PNCS ---
Subjective Interval history: afebrile, VSS UO good no BRB Objective Result Diagrams: 11/25/17 18:00 11/25/17 04:30 Objective Remarks: PE alert Abd - soft, obese, non-tender, no bleeding Assessment and Plan - Plan Imp: HR slowed acosta PO lax - incr dose avoid straining DC plans
[2017-11-26] MEDS: Acetaminophen 325 MG Tablet PO PRN (22:25)
[2017-11-27] MEDS: Chlorhexidine Gluconate 2% 1 Pack (2 Cloths) TOPICAL SCH (03:44)
[2017-11-27 05:32] LABS: Baso # (Auto) 0.1 th/mm3 (0.0-0.2); Baso % (Auto) 0.9 % (0.0-2.0); Eos # (Auto) 0.2 th/mm3 (0.0-0.4); Eos % (Auto) 3.8 % (0.0-4.0); Hematocrit 25.3 % (35.0-46.0); Hemoglobin 8.4 gm/dL (11.6-15.3); Lymph # (Auto) 2.5 th/mm3 (1.0-4.8); Lymph % (Auto) 39.8 % (9.0-44.0); Mean Corpuscular HGB Conc 33.1 % (32.0-36.0); Mean Corpuscular Hemoglobin 27.7 pg (27.0-34.0); Mean Corpuscular Volume 83.6 fL (80.0-100.0); Mean Platelet Volume 7.9 fL (7.0-11.0); Mono # (Auto) 0.7 th/mm3 (0.0-0.9); Mono % (Auto) 11.3 % (0.0-8.0); Neut # (Auto) 2.7 th/mm3 (1.8-7.7); Neut % (Auto) 44.2 % (16.0-70.0); Platelet Count 121 th/mm3 (150-450); Red Blood Count 3.02 mil/mm3 (4.00-5.30); Red Cell Distribution Width 17.6 % (11.6-17.2); White Blood Count 6.2 th/mm3 (4.0-11.0)
--- NOTE | 2017-11-27 08:05 | P.PNCC ---
Subjective Subjective Remarks/Hospital Course: 77 yo female with past medical history of chronic diastolic heart failure, diabetes mellitus, atrial fibrillation and history of bilateral pulmonary embolism 7 years ago on chronic anticoagulation with warfarin, history of breast cancer status post lumpectomy, history of colorectal cancer status post R hemicolectomy by Dr. Mcmullen. She states she had routine lab work performed and her PCP told her to go to the ED due to anemia. At that point she had been experiencing melena with some garry blood in her stools for about 4 days. She states it is not uncommon for her to have some blood in her stools due to history of constipation and rectal fissures. The melena is unusual for her as she had discontinued iron supplementation. She was having one melena stool per day. She had felt fatigued but no vomiting, abdominal pain, chest pain, or SOB. She presented to [facility] on 11/22/17 with hemoglobin of 5.6, platelets 181, INR 4.2. She has received vitamin K 5 mg IV , 2 units of FFP and 2 units of packed red cells. She was hypotensive and started on Levophed. She has developed intermittent pulmonary edema and has been treated with BiPAP and intermittent Lasix. She underwent EGD 11/22/17 that demonstrated normal esophagus, 1 healing antral ulcer, normal duodenum. No obvious source of recent or active bleeding. Colonoscopy demonstrated solid black stool in the rectum, sigmoid and transverse colon. Unable to proceed to the right colon however no active bleeding noted. Patients daughter requested transfer to [facility] because she is known to Dr. Mcmullen from her prior partial colectomy. She was admitted by Dr. Gr. Joint Finisher consult was requested because she now has Afib RVR. She has been on levophed 3 mcg/min since arrival. Hgb was 7.6 and she is receiving 1 unit PRBC over 4 hours. She is primarily complaining of restless legs. She says she hasn't had any additional BM's since 11/22. 11/25: Hemoglobin stable. No signs of bleeding. Breathing with acceptable comfort. Levophed has been off intermittently but her mean arterial pressure eventually drops below 65. Her urine output has remained excellent. 11/26: Hemoglobin stable. Remains warm and well-perfused. Levo fed off for 24 hours but she has required Midodrine. Can probably taper off Midodrine over 2- 3 days. Glucose not well controlled. Now that she is eating better and more reliably we will restart her Novolin 70/30 twice daily. It is also safe to restart her metformin twice daily at this time. She takes Farxiga at home and can restart that when she gets home. Subjective 11/27: Remains off norepinephrine drip times 36 hours. Started on Midodrine currently at 5 mg every 4 hours. On nodule on 70/30 40 units twice daily. Metformin 1000 mg twice daily. Currently holding dapagliflozin 10 mg daily. Bilirubin currently 8.4 and stable. Objective Vital Signs / I&O: Vital Signs 11/26/17 12:00 11/26/17 16:00 11/26/17 20:00 Temperature 97.9 F 98.5 F 98.5 F Pulse Rate 56 L 58 L 60 Respiratory Rate 25 H 21 20 Blood Pressure 134/56 L 110/57 L 115/75 Pulse Oximetry 100 93 L 99 11/27/17 00:00 11/27/17 04:00 Temperature 98.1 F 97.6 F Pulse Rate 52 L 52 L Respiratory Rate 13 19 Blood Pressure 149/60 H 128/53 L Pulse Oximetry 98 98 Intake & Output 11/26/17 11/27/17 11/27/17 18:59 06:59 18:59 Intake Total 1960 / 1960 480 / 480 Output Total 850 / 850 800 / 800 Balance 1110 / 1110 -320 / -320 Weight 110.2 kg Intake: IV 1000 / 1000 LR 1000 mL Inj 1,000 ML @ 30 1000 / 1000 mls/hr IV.SIG .Q24H [facility] Rx#: [id number] Oral 960 / 960 480 / 480 Output: Urine 800 / 800 Urine Amount (Catheter) 850 / 850 Indwelling Urethral Catheter 850 / 850 Other: Date of Last Bowel Movement 11/21/17 11/21/17 Result Diagrams: 11/27/17 05:18 11/25/17 04:30 Other Results: Microbiology 11/24/17 07:25 Blood - Peripheral Aerobic Blood Culture - Preliminary No growth in 2 days 11/24/17 07:25 Blood - Peripheral Anaerobic Blood Culture - Preliminary No growth in 2 days 11/24/17 07:31 Blood - Peripheral Aerobic Blood Culture - Preliminary No growth in 2 days 11/24/17 07:31 Blood - Peripheral Anaerobic Blood Culture - Preliminary No growth in 2 days Imaging: Chest X-Ray 11/24/17 00:00 CONCLUSION: Cardiomegaly. Mild consolidation or atelectasis at the medial right base. Objective Remarks: GENERAL: 77-year-old female currently resting in bed in no acute distress SKIN: Warm and dry. HEAD: Atraumatic. Normocephalic. EYES: Pupils equal and round. No scleral icterus. No injection or drainage. ENT: No nasal bleeding or discharge. Mucous membranes pink and moist. NECK: Trachea midline. Airway widely patent, no obstructive noises. CARDIOVASCULAR: Bradycardic. S1, S2. No S4. 2/6 systolic murmur left sternal border and apex. RESPIRATORY: Breathing comfortably with no accessory muscle use. CTAB. No wheeze. on NC. GASTROINTESTINAL: Abdomen soft, non-tender, nondistended. Bowel sounds present. No guarding. MUSCULOSKELETAL: Extremities without clubbing, cyanosis. Trace edema. Well- perfused. NEUROLOGICAL: Awake and alert. Oriented x3. No obvious cranial nerve deficits. Moves all extremities with no focal deficit. Normal speech. Assessment and Plan - Assessment and Plan Plan: NEURO/PSYCH: Restless leg syndrome On acetaminophen 650 p.o. every 6 hours as needed fever/pain 1 through 10 Ropinirole 0.25 mg po qhs for restless leg syndrome RESP: Prior history of tobacco abuse Nasal cannula to maintain saturations greater than equal to 92% Incentive spirometry while awake As needed albuterol aerosols every 2 hours as needed Last chest x-ray 11/24 revealed some mild atelectasis. CV: Atrial fibrillation with RVR currently in sinus bradycardia Coronary artery disease Status post left carotid endarterectomy Chronic diastolic heart failure Currently on midodrine 5 mg every 4 hours scheduled for subjective hypotension. Likely okay to taper over the next 72 hours Off norepinephrine drip times 36 hours to maintain mean arterial pressure greater than equal to 6 subjective hypertension. Discontinue LR at 30 cc an hour. Currently not requiring vasopressors and her anti-pretenses. GI: Possible GI bleeding Chronic constipation GERD History of right hemicolectomy for colon cancer Currently on ADA diet 1800 Continue Protonix 40 mill grams IV twice daily Ranitidine 300 mg daily at home. On polythene glycol 17 g 3 times daily per CRS FEN/RENAL/: Monitor intake and output. Monitor electrolytes and replace as indicated per electrolyte replacement protocol. Continue folic acid 1 mg daily. Holding calcium carbonate 60 mg twice daily. ID: Monitor for signs and symptomatology infection HEME: History of chronic anti-coagulation with warfarin. History of bilateral pulmonary emboli, History of breast cancer status post lumpectomy and radiation. History of colorectal cancer status post right hemicolectomy Normocytic anemia Thrombocytopenia Received 10 mg of phytonadione and 2 FFP at outside hospital. Received 1 PRBCs at this hospitalization. Continue anastrozole 1 mg daily/home medication Monitor CBC daily. Follow trends. No indication for transfusion of blood products at this time. Restart in a critically sure when okay with CRS ENDO: Insulin-dependent diabetes mellitus Monitor bedside glucose every before meals/at bedtime and administer low-dose insulin sliding scale as indicated. Restarted Novolin 70/30 40 units twice daily, restarted metformin 1000 mg p.o. twice daily. Holding dapagliflozin 10 mg daily 10 units sliding scale insulin past 24 hours. MSK: Elevated BMI Weight loss encouraged PROPH: SCD for DVT prophylaxis. Pantoprazole for GI prophylaxis. On ranitidine 300 mg daily at home ACCESS: Right femoral central venous line was placed 11/23/17 by adult basic education teacher at [facility]. Discontinued 2 days ago. Level 2 follow-up. Okay to transfer to floor
[2017-11-27] MEDS ORDERED: Docusate Sodium 100 MG Capsule PO ONE (08:28)
--- NOTE | 2017-11-27 09:34 | XR ---
EXAM DATE: 11/27/2017 12:00 AM EDT AGE/SEX: 77 years / Female INDICATIONS: Constipation. Patient states she has rectal bleeding. CLINICAL DATA: This is the patient's subsequent encounter. Patient reports that signs and symptoms h ave been present for 2 days and indicates a pain score of 0/10. MEDICAL/SURGICAL HISTORY: None. None. COMPARISON: No prior exams available for comparison. FINDINGS: The abdominal bowel gas pattern is normal. A single loop of gas-filled nondilated small bowel within the right lower quadrant. Gas is seen to the level the rectal vault. No dilated bowel structures. N o abnormal masses, calcifications, or organomegaly is seen. The osseous structures are unremarkable. CONCLUSION: No high stool burden observed. No dilated loops of bowel. Electronically signed by: Quinn Young MD 11/27/2017 9:33 AM EDT
[2017-11-27] MEDS: Furosemide 40 MG Tablet PO SCH (10:59)
[2017-11-27] MEDS: Senna/Docusate Sodium 8.6/50 MG Tablet PO SCH ×2 (10:59→20:52)
[2017-11-27] MEDS: Anastrozole 1 MG Tablet PO SCH (11:07)
[2017-11-27] MEDS: Insulin NovoLOG Aspart Correctional Sugar Inj SQ SCH ×4 (11:10→20:52)
[2017-11-27] MEDS: Polyethylene Glycol 3350 17 GM Packet PO SCH ×3 (11:18→17:58)
[2017-11-27] MEDS: Pantoprazole Inj 40 MG Vial IV.SIG SCH ×2 (11:21→20:52)
[2017-11-27] MEDS: Folic Acid 1 MG Tablet PO SCH (11:21)
[2017-11-27] MEDS ORDERED: Sodium Chlor 0.9% Inj 250 ML IV.SIG SCH (12:00)
--- NOTE | 2017-11-27 12:13 | P.PNCS ---
Subjective Interval history: afebrile, VSS - still dizzy with standing UO good No BRB Objective Result Diagrams: 11/27/17 05:18 11/25/17 04:30 Objective Remarks: PE alert Abd - soft, obese, non-tender, no bleeding Assessment and Plan - Plan Imp: HR slowed acosta PO lax - incr dose prn avoid straining Tx PRBC DC plans
[2017-11-27 12:22] LABS: Calcium 9.4 mg/dL (8.5-10.1); Carbon Dioxide 31.5 meq/L (21.0-32.0); Magnesium 1.9 mg/dL (1.5-2.5); Potassium 4.5 meq/L (3.5-5.1)
[2017-11-28] MEDS: Acetaminophen 325 MG Tablet PO PRN (00:48)
[2017-11-28] MEDS: Chlorhexidine Gluconate 2% 1 Pack (2 Cloths) TOPICAL SCH (03:12)
[2017-11-28 05:49] LABS: Baso # (Auto) 0.1 th/mm3 (0.0-0.2); Baso % (Auto) 0.8 % (0.0-2.0); Eos # (Auto) 0.2 th/mm3 (0.0-0.4); Eos % (Auto) 3.1 % (0.0-4.0); Hematocrit 27.5 % (35.0-46.0); Hemoglobin 9.1 gm/dL (11.6-15.3); INR 1.1 Ratio; Lymph # (Auto) 2.7 th/mm3 (1.0-4.8); Lymph % (Auto) 39.2 % (9.0-44.0); Mean Corpuscular Hemoglobin 27.4 pg (27.0-34.0); Mean Corpuscular Volume 83.1 fL (80.0-100.0); Mean Platelet Volume 8.3 fL (7.0-11.0); Mono # (Auto) 0.8 th/mm3 (0.0-0.9); Neut # (Auto) 3.2 th/mm3 (1.8-7.7); Neut % (Auto) 45.9 % (16.0-70.0); Platelet Count 124 th/mm3 (150-450); Prothrombin Time 11.4 sec (9.8-11.6); Red Blood Count 3.31 mil/mm3 (4.00-5.30); Red Cell Distribution Width 17.5 % (11.6-17.2)
[2017-11-28 06:06] LABS: Calcium 8.6 mg/dL (8.5-10.1)
[2017-11-28] MEDS: Pantoprazole Inj 40 MG Vial IV.SIG SCH ×2 (09:29→20:15)
[2017-11-28] MEDS: Insulin NovoLOG Aspart Correctional Sugar Inj SQ SCH ×4 (09:29→20:14)
[2017-11-28] MEDS: Furosemide 40 MG Tablet PO SCH (09:29)
[2017-11-28] MEDS: Folic Acid 1 MG Tablet PO SCH (09:29)
[2017-11-28] MEDS: Anastrozole 1 MG Tablet PO SCH (09:29)
[2017-11-28] MEDS: Polyethylene Glycol 3350 17 GM Packet PO SCH ×3 (09:30→17:29)
[2017-11-28] MEDS: Senna/Docusate Sodium 8.6/50 MG Tablet PO SCH ×3 (09:31→21:12)
--- NOTE | 2017-11-28 18:59 | P.PNIM ---
Subjective Interval history: Patient is in no acute distress. She denies having any abdominal pain. She has a good appetite however did not enjoyed the food at the hospital. Physical Exam Vital signs: Vital Signs 11/27/17 20:00 11/27/17 20:42 11/28/17 00:00 Temperature 98 F 97.6 F Pulse Rate 62 58 L Respiratory Rate 22 19 Blood Pressure 98/46 L 98/53 L Pulse Oximetry 100 98 98 11/28/17 04:00 11/28/17 08:00 11/28/17 08:10 Temperature 98.2 F 98.5 F Pulse Rate 54 L 56 L Respiratory Rate 18 Blood Pressure 95/51 L 116/57 L Pulse Oximetry 97 100 98 11/28/17 12:00 11/28/17 16:00 Temperature 98.6 F 98.6 F Pulse Rate 60 66 Respiratory Rate 20 20 Blood Pressure 84/45 L 145/61 H Pulse Oximetry 95 100 Intake & Output 11/27/17 11/28/17 11/28/17 18:59 06:59 18:59 Intake Total 1850 / 1850 480 / 480 250 / 250 Output Total 500 / 500 600 / 600 Balance 1350 / 1350 -120 / -120 250 / 250 Weight 105.9 kg Intake: IV 1000 / 1000 250 / 250 LR 1000 mL Inj 1,000 ML @ 30 1000 / 1000 mls/hr IV.SIG .Q24H [facility] Rx#: [id number] NS Inj 250 ML @ 15 mls/hr IV. 250 / 250 SIG ONCE [facility] Rx#:[id number] Oral 450 / 450 480 / 480 Intake (Blood Product) Amt 400 / 400 Rbc As-3 Leukoreduced Unit 400 / 400 [id number] Output: Urine 500 / 500 600 / 600 Other: # Voids 5 Date of Last Bowel Movement 11/27/17 11/27/17 # Bowel Movements 2 2 Narrative: General patient in no acute distress, she is tolerating a p.o. diet. She does not have any other complaints. HEENT extraocular movements are intact, clear oropharyngeal mucosa, on 2 L of nasal cannula which the patient uses at baseline. Cardiovascular S1-S2 audible Respiratory clear to auscultation bilaterally Abdomen soft, nontender, nondistended, normal bowel sounds Extremities no edema 2+ distal pulses in bilateral upper and lower extremities Neuro patient moves all 4 extremities sensation is intact bilaterally - Urinary Catheter Management Indwelling Urethral Catheter Cath placed during this visit: yes, but has since been removed by the nurse Reason for continuing: Decision to DC catheter Removal date: 11/26/17 Removal time: 17:55 Results - Labs CBC & Chem 7: 11/28/17 05:05 11/28/17 05:05 Laboratory Results - last 24 hr 11/27/17 11/28/17 11/28/17 20:36 05:05 05:05 WBC 7.0 RBC 3.31 L Hgb 9.1 L Hct 27.5 L MCV 83.1 MCH 27.4 MCHC 33.0 RDW 17.5 H Plt Count 124 L MPV 8.3 Neut % (Auto) 45.9 Lymph % (Auto) 39.2 Hardee % (Auto) 11.0 H Eos % (Auto) 3.1 Baso % (Auto) 0.8 Neut # (Auto) 3.2 Lymph # (Auto) 2.7 Hardee # (Auto) 0.8 Eos # (Auto) 0.2 Baso # (Auto) 0.1 WBC Differential . Differential Comment Auto diff final PT 11.4 INR 1.1 Sodium Potassium Chloride Carbon Dioxide Anion Gap BUN Creatinine Estimated GFR POC Glucose 231 H Random Glucose Calcium 11/28/17 11/28/17 11/28/17 05:05 08:35 12:56 WBC RBC Hgb Hct MCV MCH MCHC RDW Plt Count MPV Neut % (Auto) Lymph % (Auto) [place] % (Auto) Eos % (Auto) Baso % (Auto) Neut # (Auto) Lymph # (Auto) [place]ee # (Auto) Eos # (Auto) Baso # (Auto) WBC Differential Differential Comment PT INR Sodium 140 Potassium 4.0 Chloride 103 Carbon Dioxide 31.0 Anion Gap 6 BUN 19 H Creatinine 1.27 H Estimated GFR 41 L POC Glucose 131 H 170 H Random Glucose 109 H Calcium 8.6 D 11/28/17 18:02 WBC RBC Hgb Hct MCV MCH MCHC RDW Plt Count MPV Neut % (Auto) Lymph % (Auto) [place] % (Auto) Eos % (Auto) Baso % (Auto) Neut # (Auto) Lymph # (Auto) [place]ee # (Auto) Eos # (Auto) Baso # (Auto) WBC Differential Differential Comment PT INR Sodium Potassium Chloride Carbon Dioxide Anion Gap BUN Creatinine Estimated GFR POC Glucose 157 H Random Glucose Calcium Microbiology 11/24/17 07:25 Blood - Peripheral Aerobic Blood Culture - Preliminary No growth in 4 days 11/24/17 07:25 Blood - Peripheral Anaerobic Blood Culture - Preliminary No growth in 4 days 11/24/17 07:31 Blood - Peripheral Aerobic Blood Culture - Preliminary No growth in 4 days 11/24/17 07:31 Blood - Peripheral Anaerobic Blood Culture - Preliminary No growth in 4 days Assessment and Plan - Plan This patient is a 77-year-old female with a diagnosis of chronic diastolic heart failure, diabetes, atrial fibrillation and history of bilateral pulmonary embolism 7 years ago on chronic anticoagulation with Coumadin. She also has a history of breast cancer status post lumpectomy history of colorectal cancer status post right hemicolectomy by Dr. Mcmullen. The patient presented to our facility as a transfer after her PCP found that her hemoglobin was 5.6 and INR 4.2. By that time the patient was already having what appeared to be a GI bleed. The patient was having melenic stools. 1. Hemorrhagic shock secondary to GI bleed 2. Acute symptomatically loss anemia likely secondary to #1 3. Atrial fibrillation with rapid ventricular rate likely secondary to #1 The patient initially was admitted to the intensive care unit and started on pressors due to hypotension. She did receive FFP's as well as PRBC transfusions during the hospitalization. She underwent EGD on 11/22/2017 that demonstrated a normal esophagus, 1 healing ulcer in the antrum and a normal duodenum. Colonoscopy was done which demonstrated solid black stool in the rectum, sigmoid and transverse colon. No active bleeding was noted. Currently on midodrine. Hemoglobin appears to be stable. Continue Protonix IV twice daily. Warfarin restarted yesterday. We will continue to monitor the patient for any bleeding. Heart rate currently in the 50s. We will not start a beta-nakia at this time. I will attempt to obtain the patient's home medications. Follow-up a.m. labs Continue PT 4. History of bilateral pulmonary embolism Warfarin restarted yesterday. We will continue to monitor the patient for any bleeding. 5. Insulin-dependent diabetes mellitus Continue current diabetes mellitus medication regimen. Her medication regimen will be adjusted if needed. DVT prophylaxis, patient is on Coumadin.
--- NOTE | 2017-11-28 21:57 | P.PNCS ---
Subjective Interval history: afebrile, VSS UO good feels stronger Objective Result Diagrams: 11/28/17 05:05 11/28/17 05:05 Objective Remarks: PE alert Abd - soft, obese, non-tender, no bleeding Assessment and Plan - Plan Imp: HR slowed acosta PO lax - incr dose prn DC plans
[2017-11-29 04:40] VITALS: PULSE 59
[2017-11-29 05:30] LABS: INR 1.2 Ratio
[2017-11-29 05:31] LABS: Hematocrit 27.6 % (35.0-46.0); Hemoglobin 8.9 gm/dL (11.6-15.3)
[2017-11-29 05:51] LABS: Calcium 9.1 mg/dL (8.5-10.1); Carbon Dioxide 30.8 meq/L (21.0-32.0); Magnesium 1.6 mg/dL (1.5-2.5); Potassium 3.8 meq/L (3.5-5.1)
[2017-11-29] MEDS: Chlorhexidine Gluconate 2% 1 Pack (2 Cloths) TOPICAL SCH (06:06)
[2017-11-29] MEDS: Furosemide 40 MG Tablet PO SCH (08:37)
[2017-11-29] MEDS: Senna/Docusate Sodium 8.6/50 MG Tablet PO SCH (08:37)
[2017-11-29] MEDS: Pantoprazole Inj 40 MG Vial IV.SIG SCH (08:38)
[2017-11-29] MEDS: Folic Acid 1 MG Tablet PO SCH (08:38)
[2017-11-29] MEDS: Polyethylene Glycol 3350 17 GM Packet PO SCH ×4 (08:38→14:43)
[2017-11-29] MEDS: Insulin NovoLOG Aspart Correctional Sugar Inj SQ SCH ×2 (08:41→12:15)
[2017-11-29] MEDS: Anastrozole 1 MG Tablet PO SCH (09:41)
[2017-11-29 12:48] VITALS: O2SAT 98
[2017-11-29 13:21] VITALS: BP 112/52; RESP 16; TEMP 98
--- NOTE | 2017-11-29 18:51 | P.PNIM ---
Subjective Interval history: Patient does not have any acute complaints today. She does not appear to be in any distress. She denies any bleeding. Physical Exam Vital signs: Vital Signs 11/28/17 20:00 11/28/17 21:00 11/28/17 22:53 Temperature 98.3 F 99.1 F Pulse Rate 66 60 59 L Respiratory Rate 21 18 Blood Pressure 126/53 L 126/58 L Pulse Oximetry 98 92 L 11/28/17 22:54 11/29/17 00:00 11/29/17 04:00 Temperature 98 F 98.4 F Pulse Rate 59 L 61 59 L Respiratory Rate 18 18 Blood Pressure 124/58 L 91/57 L Pulse Oximetry 98 95 11/29/17 08:00 11/29/17 12:00 11/29/17 12:47 Temperature 97.7 F 98.0 F Pulse Rate 59 L 59 L Respiratory Rate 18 16 Blood Pressure 122/56 L 112/52 L Pulse Oximetry 99 98 98 Intake & Output 11/28/17 11/29/17 11/29/17 18:59 06:59 18:59 Intake Total 250 / 250 / 20 Balance 250 / 250 / 20 Weight 105.9 kg Intake: IV 250 / 250 NS Inj 250 ML @ 15 mls/hr IV. 250 / 250 SIG ONCE [facility] Rx#:[id number] Oral Other: # Voids 5 2 Date of Last Bowel Movement 11/28/17 11/28/17 # Bowel Movements 2 1 Narrative: General patient in no acute distress, she is tolerating a p.o. diet. She does not have any other complaints. HEENT extraocular movements are intact, clear oropharyngeal mucosa, on 2 L of nasal cannula which the patient uses at baseline. Cardiovascular S1-S2 audible Respiratory clear to auscultation bilaterally Abdomen soft, nontender, nondistended, normal bowel sounds Extremities no edema 2+ distal pulses in bilateral upper and lower extremities Neuro patient moves all 4 extremities sensation is intact bilaterally - Urinary Catheter Management Indwelling Urethral Catheter Cath placed during this visit: yes, but has since been removed by the nurse Reason for continuing: Decision to DC catheter Removal date: 11/26/17 Removal time: 17:55 Results - Labs CBC & Chem 7: 11/29/17 04:37 11/29/17 04:37 Laboratory Results - last 24 hr 11/28/17 11/29/17 11/29/17 20:04 04:37 04:37 Hgb 8.9 L Hct 27.6 L PT 12.0 H INR 1.2 Sodium Potassium Chloride Carbon Dioxide Anion Gap BUN Creatinine Estimated GFR POC Glucose 169 H Random Glucose Calcium Magnesium 11/29/17 11/29/17 11/29/17 04:37 08:36 11:29 Hgb Hct PT INR Sodium 138 Potassium 3.8 Chloride 99 Carbon Dioxide 30.8 Anion Gap 8 BUN 19 H Creatinine 1.17 H Estimated GFR 45 L POC Glucose 122 H 109 Random Glucose 106 Calcium 9.1 Magnesium 1.6 Microbiology 11/24/17 07:25 Blood - Peripheral Aerobic Blood Culture - Final No growth in 5 days 11/24/17 07:25 Blood - Peripheral Anaerobic Blood Culture - Final No growth in 5 days 11/24/17 07:31 Blood - Peripheral Aerobic Blood Culture - Final No growth in 5 days 11/24/17 07:31 Blood - Peripheral Anaerobic Blood Culture - Final No growth in 5 days Assessment and Plan - Plan This patient is a 77-year-old female with a diagnosis of chronic diastolic heart failure, diabetes, atrial fibrillation and history of bilateral pulmonary embolism 7 years ago on chronic anticoagulation with Coumadin. She also has a history of breast cancer status post lumpectomy history of colorectal cancer status post right hemicolectomy by Dr. Mcmullen. The patient presented to our facility as a transfer after her PCP found that her hemoglobin was 5.6 and INR 4.2. By that time the patient was already having what appeared to be a GI bleed. The patient was having melenic stools. 1. Hemorrhagic shock secondary to GI bleed 2. Acute symptomatically loss anemia likely secondary to #1 3. Atrial fibrillation with rapid ventricular rate likely secondary to #1 Patient was reevaluated today. Her hemoglobin appears to be stable with no significant drop from yesterday to today. The patient initially was admitted to the intensive care unit and started on pressors due to hypotension. She did receive FFP's as well as PRBC transfusions during the hospitalization. She underwent EGD on 11/22/2017 that demonstrated a normal esophagus, 1 healing ulcer in the antrum and a normal duodenum. Colonoscopy was done which demonstrated solid black stool in the rectum, sigmoid and transverse colon. No active bleeding was noted. Currently on midodrine. Continue Protonix IV twice daily. Warfarin restarted 2 days ago. We will continue to monitor the patient for any bleeding. Heart rate currently still in the 50s. We will not start a beta-nakia at this time. Follow-up a.m. labs Continue PT at [facility]. Follow-up in a.m. PT/INR. 4. History of bilateral pulmonary embolism Warfarin restarted yesterday. We will continue to monitor the patient for any bleeding. 5. Insulin-dependent diabetes mellitus Continue current diabetes mellitus medication regimen. Her medication regimen will be adjusted if needed. DVT prophylaxis, patient is on Coumadin.
[2017-11-29] MEDS ORDERED: Warfarin Consult Pharmacy OTHER PRN (18:52)
--- NOTE | 2017-12-12 00:48 | MD ---
cc: Mark Mcmullen MD, George MD DATE OF DISCHARGE: 11/29/2017 ADMITTING DIAGNOSIS: Gastrointestinal bleed. PROCEDURES: There were no procedures. DISCHARGE DIAGNOSES: 1. Gastrointestinal bleed. 2. History of atrial fibrillation. 3. Coronary artery disease. 4. Chronic diastolic heart failure. 5. Insulin-dependent diabetes. HISTORY OF PRESENT ILLNESS: Mrs. Meehan is a 77-year-old female with a past history of chronic diastolic heart failure, diabetes, atrial fibrillation, history of bilateral pulmonary embolism, on chronic anticoagulation. She also has a history of breast cancer and colorectal cancer. The patient had been doing well at home, having routine blood work showing anemia and she was advised to go the emergency room for evaluation. The patient does note some dark stools, possibly melanotic type, as well as some garry red blood in her stools for about 4 days prior to admission. The patient felt tired and somewhat lethargic, but had no vomiting. No significant diarrhea. She was evaluated at [facility] in [facility] and found to have a hemoglobin of 5.6, platelet count 181,000, an INR of 4.2. She received vitamin K, 2 units of fresh frozen plasma and 2 units of packed red blood cells. She was started on Levophed for some hypotension. The patient did have an EGD and colonoscopy while she was in [facility] showing healed antral ulcer. No active source of bleeding except diverticulosis of the rectosigmoid colon. Patient's family requested transfer to [facility] because of her previous relationship with the [facility]. The patient was transferred while on Levophed with her last hemoglobin of 7.6, receiving another unit of packed red blood cells. Please see her admitting history and physical and consultations for complete past medical and surgical history. PERTINENT PHYSICAL EXAMINATION: Very pleasant, obese female in no acute distress. Abdomen was very obese and soft. No real distention. All incisions are well healed. No rebound, guarding or masses. Anal inspection revealed benign canal. Digital exam revealed only fair tone with some melanotic type stool in the vault. No rectal bleeding. LABORATORY STUDIES: All reviewed and updated. HOSPITAL COURSE: After admission, the patient remained hemodynamically stable while in the intensive care unit. Her INR reversed rather promptly. Her diet was advanced slowly. She had no more active bright red blood per rectum and melena eventually decreased. Her heart rate was controlled by the process equipment operator with medical therapy. She continued to require treatment for hypotension and orthostatic drop in pressure. This was treated with medication and infusion of additional packed red blood cells. She eventually was able to ambulate from bed to chair with some assistance. Her appetite remained good. Her hemoglobin had not changed and she was considered ready for discharge to rehab on 11/29/2017. DISCHARGE INSTRUCTIONS: The patient was discharged eating a regular diet. She was encouraged to continue physical therapy for ambulation. Stool softeners were advised to prevent straining and constipation issues. The patient will be followed in the rehab center with serial H and H's and eventually if stable restarted back on her anticoagulation cautiously. The patient will be seen in the office in 1-2 weeks' time if able. If not, she will be followed when she leaves rehabilitation and is more stable enough to come to the office. Any additional active GI bleeding will be addressed by an inpatient consultation in the rehab center. MD KIN Katz/bernadette , 07:20 PM , 07:30 PM
== END 2017-11-29 16:07 ==
LOC: N03 23:45 → N06 11-28 21:15
PROVIDERS: ADMIT Colon & Rectal Surgery; ATTEND Colon & Rectal Surgery

== ENCOUNTER 2018-01-01 14:03 | Inpatient (IN) ==
--- NOTE | 2018-01-01 15:39 | ED ---
HPI General Chief complaint: Recheck/Abnormal Lab/Rx Stated complaint: abnl labs/doc sent Time Seen by Provider: 01/01/18 15:09 History of Present Illness HPI narrative: 77-year-old female with a history of atrial fibrillation, CHF, CAD, diabetes, PE anticoagulated on warfarin, GI bleed, colorectal cancer resents to the emergency department for evaluation of GI bleed. Patient states that for the past 4-5 days she has had dark black stool. States that she is constipated and passing only small amounts of stool with having to strain. States that she was seen by her marketing content coordinator Dr. Pandya today in office and they did a CBC there which showed her hemoglobin was 7.1, hematocrit 24.8. She does complain of feeling lightheaded, weak and short of breath over the past 4-5 days as well. She was admitted to our hospital last month for GI bleed which was thought to be resolving. States she does have some abdominal discomfort which is generalized. Denies any fever, chills, nausea, vomiting, diarrhea, chest pain. States she has mild swelling of her ankles which is improved from previous swelling. PCP is Dr. Crystal. Colorectal specialist is Dr. Mcmullen. Related Data Home Medications Medication Instructions Recorded Confirmed anastrozole 1 mg PO DAILY 01/01/18 01/01/18 dapagliflozin [Farxiga] 10 mg PO QAM 01/01/18 01/01/18 furosemide [Lasix] 40 mg PO BID PRN 01/01/18 01/01/18 lovastatin 20 mg PO DAILY 01/01/18 01/01/18 metformin 1,000 mg PO BID 01/01/18 01/01/18 midodrine 5 mg PO QID 01/01/18 01/01/18 ranitidine HCl 300 mg PO DAILY 01/01/18 01/01/18 Previous Rx's Medication Instructions Recorded anastrozole [Arimidex] 1 mg PO DAILY 30 Days #30 tab 12/12/17 aspirin 81 mg PO DAILY 30 Days #30 tab 12/12/17 calcium carbonate [Oyster Shell 500 mg PO BID 30 Days #60 tab 12/12/17 Calcium 500] folic acid 1 mg PO DAILY 30 Days #30 tab 12/12/17 furosemide 40 mg PO BID 30 Days #60 tab 12/12/17 insulin NPH and regular human 40 units SUBCUT BID@0800,1700 30 10/18/18 [Novolin 70/30 U-100 Insulin] Days ml isosorbide mononitrate 30 mg PO DAILY 30 Days #30 tab 12/12/17 metoprolol succinate 12.5 mg PO DAILY 30 Days #15 tab 12/12/17 midodrine 5 mg PO QID 30 Days #120 tab 12/12/17 pantoprazole 40 mg PO BID 30 Days #60 tab 12/12/17 polyethylene glycol 3350 17 gm PO DAILY 30 Days each 12/12/17 potassium chloride [Klor-Con 10] 10 meq PO BID 30 Days #60 tab 12/12/17 pravastatin 20 mg PO HS 30 Days #30 tab 12/12/17 ropinirole [Requip] 0.5 mg PO HS 30 Days #30 tab 12/12/17 warfarin [Coumadin] 5 mg PO DAILY@1600 30 Days tab 12/12/17 Allergies Allergy/AdvReac Type Severity Reaction Status Date / Time No Known Allergies Allergy Verified 01/01/18 14:23 Review of Systems ROS: all other systems reviewed are negative [facility] Social History Social History Substance History: No History of Abuse Second Hand Smoke Exposure: No Smoking Status: Never smoker Tobacco Type: Cigarettes How Often Do You Have a Drink Containing Alcohol: Never Recent Travel in [facility] within the Last 8 Weeks: No Recent Out of Country Travel within the Last 8 Weeks: No Immunization History Tetanus Immunization: Unsure Exam Narrative Exam Narrative: GENERAL: Well-nourished and well-developed female patient in no acute distress. SKIN: Warm and dry. HEAD: Normocephalic and atraumatic. EYES: No injection, drainage, or hyphema noted. PERRLA. EOMI. ENT: No nasal drainage noted. Oropharynx is clear. NECK: Supple and the trachea is midline. CARDIOVASCULAR: Regular rate and rhythm. RESPIRATORY: Breath sounds are equal bilaterally with no accessory muscle use, wheezing, rhonchi, or crackles. GASTROINTESTINAL: Right abdominal wall hernia, soft and nontender. Abdomen is soft, non-tender, and nondistended. MUSCULOSKELETAL: Mild swelling of ankles. No obvious deformities, swelling, cyanosis, or ecchymosis is present throughout the upper and lower extremities. Patient has full range of motion without any signs of neurovascular compromise. Distal pulses are 2+ throughout. NEUROLOGICAL: Awake, alert, and oriented. Normal speech and gait. Cranial nerves are grossly intact. Procedures Hemaprompt Stool Procedural Steps Taken: specimen placed in appropriate test area, developer placed on specimen and control areas and controls appropriately positive and negative Hemaprompt Stool Result: positive Course Initial Documented Vital Signs Temperature 98.0 F 01/01/18 14:21 Pulse Rate 65 01/01/18 14:21 Respiratory Rate 20 01/01/18 14:21 Blood Pressure 105/51 L 01/01/18 14:21 Pulse Oximetry 93 L 01/01/18 14:21 Last Documented Vital Signs Temperature 98.0 F 01/01/18 14:21 Pulse Rate 65 01/01/18 14:21 Respiratory Rate 20 01/01/18 14:21 Blood Pressure 105/51 L 01/01/18 14:21 Pulse Oximetry 99 01/01/18 15:32 Medical Decision Making ANIVAL Attestation ANIVAL supervised visit: Yes Attestation: I, Dr. Carlson, have reviewed the advance practice practitioner's documentation and am in agreement, met with the patient face to face, made the diagnosis, and the medical decision making was done by me. *My assessment and Findings: Patient seen and evaluated with PA, please see PA notes for further details. Here because she has history of GI bleeds, constipated, dark stools, Hemoccult positive. H&H is low. Suspected to have a GI bleed, currently on Coumadin, colorectal cancer Dr. Mcmullen following. At this point, patient was given 2 units of RBCs, vitamin K given, planning to admit for further treatment. MDM Narrative Medical decision making narrative: 77-year-old female presents to the emergency department for evaluation of GI bleed and anemia. Patient is afebrile, vital signs are stable. IV access is obtained, labs of been drawn and sent. Patient is placed on cardiac telemetry and pulse oximetry monitoring. Patient brought lab work with her from her oncologist office that was done today showing she had a hemoglobin 7.1, hematocrit 24.8. Stool is guaiac positive. 2 units of PRBCs has been ordered to be transfused. CBC shows anemia with hemoglobin 7.1, hematocrit 22.5. Abdominal KUB shows no evidence of acute process or significant stool retention. Chest x-ray shows slight central pulmonary vascular congestion. INR is therapeutic at 2.0. CMP shows creatinine 1.56, BUN 42, GFR 32. Consistent with baseline. Troponin is less than 0.02. Patient administered Vitamin K orally for INR 2.0 with active GI bleeding. She has remained hemodynamically stable here in the ED and will be admitted to medicine service. Discussed with Dr. Aggarwal [facility] who accepts admission. I spoke with Dr. Esther Magana colorectal surgeon masonry instructor for Dr. Mcmullen. Discussed patient with her and she recommends admission to medicine with hemoglobin checks [id number]. She recommends holding warfarin. She states she will let Dr. Mcmullen know about patient and he will likely see her tonight. She states Dr. Mcmullen will then decide whether patient needs EGD/colonoscopy. Medical Screen Exam Complete: Yes Emergency Medical Condition: Yes Differential Diagnosis Differential Diagnosis: Anemia versus GI bleed versus heart failure Lab Data Result diagrams: 01/01/18 15:35 01/01/18 15:35 Lab Results 01/01/18 01/01/18 01/01/18 Range/Units 15:35 15:35 15:35 WBC 9.1 (4.0-11.0) th/mm3 RBC 2.85 L (4.00-5.30) mil/mm3 Hgb 7.1 L (11.6-15.3) gm/dL Hct 22.5 L (35.0-46.0) % MCV 78.8 L (80.0-100.0) fL MCH 24.9 L (27.0-34.0) pg MCHC 31.6 L (32.0-36.0) % RDW 20.6 H (11.6-17.2) % Plt Count 213 (150-450) th/mm3 MPV 8.8 (7.0-11.0) fL Neut % (Auto) 47.6 (16.0-70.0) % Lymph % (Auto) 38.9 (9.0-44.0) % Valencia % (Auto) 10.3 H (0.0-8.0) % Eos % (Auto) 2.3 (0.0-4.0) % Baso % (Auto) 0.9 (0.0-2.0) % Neut # (Auto) 4.3 (1.8-7.7) th/mm3 Lymph # (Auto) 3.5 (1.0-4.8) th/mm3 Valencia # (Auto) 0.9 (0.0-0.9) th/mm3 Eos # (Auto) 0.2 (0.0-0.4) th/mm3 Baso # (Auto) 0.1 (0.0-0.2) th/mm3 WBC Differential . Differential Comment Auto diff final PT 20.0 H (9.8-11.6) sec INR 2.0 Ratio APTT 30.9 (23.4-31.7) sec Sodium (136-145) meq/L Potassium (3.5-5.1) meq/L Chloride (98-107) meq/L Carbon Dioxide (21.0-32.0) meq/L Anion Gap (5-15) meq/L BUN (7-18) mg/dL Creatinine (0.50-1.00) mg/dL Estimated GFR (>89) mL/min Random Glucose (74-106) mg/dL Calcium (8.5-10.1) mg/dL Total Bilirubin (0.2-1.0) mg/dL AST (15-37) U/L ALT (10-53) U/L Alkaline Phosphatase (45-117) U/L Troponin I (0.02-0.05) ng/mL B-Natriuretic Peptide (0-100) pg/mL Total Protein (6.4-8.2) g/dL Albumin (3.4-5.0) g/dL Blood Type A Positive Antibody Screen Negative MTS Gel Crossmatch 01/01/18 01/01/18 01/01/18 Range/Units 15:35 15:35 15:35 WBC (4.0-11.0) th/mm3 RBC (4.00-5.30) mil/mm3 Hgb (11.6-15.3) gm/dL Hct (35.0-46.0) % MCV (80.0-100.0) fL MCH (27.0-34.0) pg MCHC (32.0-36.0) % RDW (11.6-17.2) % Plt Count (150-450) th/mm3 MPV (7.0-11.0) fL Neut % (Auto) (16.0-70.0) % Lymph % (Auto) (9.0-44.0) % Valencia % (Auto) (0.0-8.0) % Eos % (Auto) (0.0-4.0) % Baso % (Auto) (0.0-2.0) % Neut # (Auto) (1.8-7.7) th/mm3 Lymph # (Auto) (1.0-4.8) th/mm3 Valencia # (Auto) (0.0-0.9) th/mm3 Eos # (Auto) (0.0-0.4) th/mm3 Baso # (Auto) (0.0-0.2) th/mm3 WBC Differential Differential Comment PT (9.8-11.6) sec INR Ratio APTT (23.4-31.7) sec Sodium 137 (136-145) meq/L Potassium 4.2 (3.5-5.1) meq/L Chloride 101 (98-107) meq/L Carbon Dioxide 26.4 (21.0-32.0) meq/L Anion Gap 10 (5-15) meq/L BUN 42 H (7-18) mg/dL Creatinine 1.56 H (0.50-1.00) mg/dL Estimated GFR 32 L (>89) mL/min Random Glucose 155 H (74-106) mg/dL Calcium 8.7 (8.5-10.1) mg/dL Total Bilirubin 0.5 (0.2-1.0) mg/dL AST 32 (15-37) U/L ALT 24 (10-53) U/L Alkaline Phosphatase 100 (45-117) U/L Troponin I Less than 0.02 L (0.02-0.05) ng/mL B-Natriuretic Peptide 1279 H (0-100) pg/mL Total Protein 8.0 (6.4-8.2) g/dL Albumin 3.1 L (3.4-5.0) g/dL Blood Type Antibody Screen MTS Gel Crossmatch See Detail Imaging Data Radiologist's impression: Chest X-Ray 01/01/18 15:32 CONCLUSION: 1. Cardiomegaly with slight central pulmonary vascular congestion. Abdomen X-Ray 01/01/18 15:50 CONCLUSION: No evidence of acute process or significant stool retention. Discharge Plan Discharge Disposition Patient Disposition: 30 Still Patient Discharge Details Diagnosis: GI bleed, Symptomatic anemia Physicians Team ED Provider: Zane Carlson ED Midlevel Provider: Shawna Yeung Primary Care Provider: Wm Crystal Attending Provider: Francisco Aggarwal Status ED Status: Admitted Patient
--- NOTE | 2018-01-01 15:52 | XR ---
EXAM DATE: 01/01/2018 3:50 PM EST AGE/SEX: 77 years / Female INDICATIONS: Shortness of breath. CLINICAL DATA: This is the patient's initial encounter. Patient reports that signs and symptoms have been present for 1 week and indicates a pain score of 5/10. MEDICAL/SURGICAL HISTORY: Congestive heart failure. None. COMPARISON: [facility], CHEST 1V SINGLE AP, 12/09/2017. . FINDINGS: No significant new focal pleural or parenchymal opacities. Cardiac silhouette is enlarged. Central pu lmonary vascularity is slightly prominent. Remainder of the exam is unchanged. CONCLUSION: 1. Cardiomegaly with slight central pulmonary vascular congestion. Electronically signed by: Kamari Ugarte MD 01/01/2018 3:51 PM EST
[2018-01-01 16:00] LABS: Baso # (Auto) 0.1 th/mm3 (0.0-0.2); Baso % (Auto) 0.9 % (0.0-2.0); Eos # (Auto) 0.2 th/mm3 (0.0-0.4); Eos % (Auto) 2.3 % (0.0-4.0); Hematocrit 22.5 % (35.0-46.0); Hemoglobin 7.1 gm/dL (11.6-15.3); Lymph # (Auto) 3.5 th/mm3 (1.0-4.8); Lymph % (Auto) 38.9 % (9.0-44.0); Mean Corpuscular HGB Conc 31.6 % (32.0-36.0); Mean Corpuscular Hemoglobin 24.9 pg (27.0-34.0); Mean Corpuscular Volume 78.8 fL (80.0-100.0); Mean Platelet Volume 8.8 fL (7.0-11.0); Mono # (Auto) 0.9 th/mm3 (0.0-0.9); Mono % (Auto) 10.3 % (0.0-8.0); Neut # (Auto) 4.3 th/mm3 (1.8-7.7); Neut % (Auto) 47.6 % (16.0-70.0); Platelet Count 213 th/mm3 (150-450); Red Blood Count 2.85 mil/mm3 (4.00-5.30); Red Cell Distribution Width 20.6 % (11.6-17.2); White Blood Count 9.1 th/mm3 (4.0-11.0)
[2018-01-01] MEDS ORDERED: Sodium Chlor 0.9% Inj 250 ML IV.SIG SCH (16:00)
[2018-01-01 16:12] LABS: Activated Partial Thrombo Time 30.9 sec (23.4-31.7)
--- NOTE | 2018-01-01 16:23 | XR ---
EXAM DATE: 01/01/2018 4:19 PM EST AGE/SEX: 77 years / Female INDICATIONS: Constipation. CLINICAL DATA: This is the patient's initial encounter. Patient reports that signs and symptoms have been present for 2 days and indicates a pain score of 0/10. MEDICAL/SURGICAL HISTORY: . CHF. None. COMPARISON: [facility], ABDOMEN 1V KUB, 11/27/2017. . FINDINGS: The abdominal bowel gas pattern is normal. No abnormal masses, calcifications, or organomegaly is s een. The osseous structures are unremarkable. CONCLUSION: No evidence of acute process or significant stool retention. Electronically signed by: Silvio Musa MD 01/01/2018 4:22 PM EST
[2018-01-01 16:28] LABS: Alanine Aminotransferase 24 U/L (10-53); Albumin 3.1 g/dL (3.4-5.0); Anion Gap 10 meq/L (5-15); Aspartate Aminotransferase 32 U/L (15-37); Blood Urea Nitrogen 42 mg/dL (7-18); Calcium 8.7 mg/dL (8.5-10.1); Carbon Dioxide 26.4 meq/L (21.0-32.0); Chloride 101 meq/L (98-107); Glomerular Filtration Rate 32 mL/min (>89); Glucose,Random 155 mg/dL (74-106); Potassium 4.2 meq/L (3.5-5.1); Sodium 137 meq/L (136-145)
[2018-01-01 16:32] LABS: Alkaline Phosphatase 100 U/L (45-117)
[2018-01-01] MEDS ORDERED: Phytonadione 5 MG/SWFI 5 ML Oral Syringe PO ONE (17:00)
[2018-01-01] MEDS: Pantoprazole Inj 80 MG in Sodium Chlor 0.9% Inj 100 ML IV.CONT SCH (18:26)
[2018-01-01] MEDS ORDERED: Dextrose 50% in Water 50 ML Vial IV.PUSH PRN ×2 (19:25→23:53)
[2018-01-01] MEDS: Insulin NovoLOG Aspart Correctional Sugar Inj SQ SCH (20:35)
[2018-01-01] MEDS ORDERED: ALPRAZolam 0.25 MG Tablet PO ONE (20:43)
--- NOTE | 2018-01-01 21:16 | P.HPIM ---
History of Present Illness Primary Care Physician: Wm Crystal History of Present Illness: 77 y/o female with a medical history significant for atrial fibrillation on Coumadin, history of bilateral pulmonary embolus 7 years ago on 8 chronic anticoagulation with Coumadin, history of breast cancer, diabetes, diastolic heart failure and history of colorectal cancer status post ascending colectomy February 2015 presented to the ED with complaints of black tarry stools for 3 days. She was recently discharged from [facility] where she was rehabbed after a hospital stay for anemia. She followed up with her subway train operator today and was found to have a hemoglobin of 7. She states she was discharged on iron pills but due to constipation she stopped taking them 3 days ago. She is complaining of generalized fatigue, she states she has been straining due to the constipation but denies any hematochezia. She has abdominal discomfort but no true pain she states. She denies any chest pain, sob ,fever, chills, nausea or vomiting. She follows with Dr. Mcmullen. Inpatient Certification Inpatient Certification: I certify that the inpatient services were ordered in accordance with Medicare regulations governing the order. This includes certification that hospital inpatient services are reasonable and necessary and in the case of services not specified as inpatient-only under 42 CFR 419.22(n), that they are appropriately provided as inpatient services in accordance to with the 2-midnight benchmark under 43 CFR 412.3(e) Estimated Total Length of Stay (Days): 2 Plans for Post Hospital Care: Home Review of Systems ROS: all other systems reviewed are negative [facility] Medical History Medical History Atrial fibrillation with RVR (Acute) Diabetes mellitus (Acute) Diastolic heart failure (Acute) HX: breast cancer (Acute) History of colon cancer (Acute) Hx of radiation therapy (Acute) Hx pulmonary embolism (Acute) Surgical History Surgical History H/O cardiac catheterization (Acute) H/O carotid endarterectomy (Acute) H/O esophagogastroduodenoscopy (Acute) H/O right hemicolectomy (Acute) H/O ventral hernia repair (Acute) History of lumpectomy of left breast (Acute) Hx of colonoscopy (Acute) S/P appy (Acute) Family History Family History Sister Pulmonary embolism Mother Stroke Uterine cancer Father Stroke Social History Social History Substance History: No History of Abuse Second Hand Smoke Exposure: No Smoking Status: Former smoker Tobacco Type: Cigarettes How Often Do You Have a Drink Containing Alcohol: Never Recent Travel in [facility] within the Last 8 Weeks: No Recent Out of Country Travel within the Last 8 Weeks: No Immunization History Tetanus Immunization: Unsure Medications and Allergies Allergies Allergy/AdvReac Type Severity Reaction Status Date / Time No Known Allergies Allergy Verified 01/01/18 14:23 Home Medications Medication Instructions Recorded Confirmed Type anastrozole 1 mg PO DAILY 01/01/18 01/01/18 History dapagliflozin [Farxiga] 10 mg PO QAM 01/01/18 01/01/18 History furosemide [Lasix] 40 mg PO BID PRN 01/01/18 01/01/18 History lovastatin 20 mg PO DAILY 01/01/18 01/01/18 History metformin 1,000 mg PO BID 01/01/18 01/01/18 History midodrine 5 mg PO QID 01/01/18 01/01/18 History ranitidine HCl 300 mg PO DAILY 01/01/18 01/01/18 History Active Medications: Active Medications Dextrose (D50w Vial) 50 ml IV.PUSH UNSCH PRN PRN Reason: PER HYPOGLYCEMIA PROTOCOL Glucagon (Glucagon Inj) 1 mg OTHER PRN PRN PRN Reason: for Hypoglycemia Protocol Pantoprazole Sodium 80 mg/ (Sodium Chloride) 100 mls @ 10 mls/hr IV.CONT CONT FIGUEROA Last Admin: 01/01/18 18:26 Dose: 10 mls/hr Sodium Chloride (Ns Inj) 250 mls @ 15 mls/hr IV.SIG ONCE FIGUEROA Stop: 01/02/18 08:39 Last Admin: 01/01/18 18:25 Dose: 15 mls/hr Insulin Aspart (Novolog Insulin Correctional Sugar Inj) 0 unit SQ ACHS FIGUEROA; Protocol Last Admin: 01/01/18 20:35 Dose: Not Given Midodrine (Proamatine) 5 mg PO QID FIGUEROA Pravastatin Sodium (Pravachol) 20 mg PO DAILY FIGUEROA Sodium Chloride (Ns Flush) 2 ml IV.FLUSH BID FIGUEROA Sodium Chloride (Ns Flush) 2 ml IV.FLUSH PRN PRN PRN Reason: FLUSH AFTER USING IV ACCESS Physical Exam Vital signs: Last Vital Signs Temp 98.3 F 01/01/18 20:12 Pulse 72 01/01/18 20:12 Resp 20 01/01/18 20:12 BP 109/59 L 01/01/18 20:12 Pulse Ox 96 01/01/18 20:11 Intake & Output 12/30/17 12/31/17 01/01/18 01/02/18 06:59 06:59 06:59 06:59 Weight 102.512 kg Narrative: GENERAL: well nourished patient who appears anxious SKIN: Warm and dry. HEAD: Atraumatic. Normocephalic. EYES: Pupils equal and round. No scleral icterus. No injection or drainage. ENT: No nasal bleeding or discharge. Mucous membranes pink and moist. CARDIOVASCULAR: Regular rate and rhythm. RESPIRATORY: No accessory muscle use. Clear to auscultation. Breath sounds equal bilaterally. GASTROINTESTINAL: Abdomen soft, non-tender, nondistended. Hepatic and splenic margins not palpable. MUSCULOSKELETAL: Extremities without clubbing, cyanosis, or edema. No obvious deformities. NEUROLOGICAL: Awake and alert. No obvious cranial nerve deficits. Motor grossly within normal limits. Normal speech Assessment and Plan Plan 77 y/o female with a medical history significant for atrial fibrillation on Coumadin, history of bilateral pulmonary embolus 7 years ago on 8 chronic anticoagulation with Coumadin, history of breast cancer, diabetes, diastolic heart failure and history of colorectal cancer status post ascending colectomy February 2015 presented to the ED with complaints of black tarry stools for 3 days. Symptomatic anemia, likely related to upper GI bleed -Consult placed to colorectal -Protonix IV -NPO -Transfused 2 units PRBCs, lasix after 1st unit -Serial H&H Afib, chronic -Hold anticoagulation -Monitor telemetry -Cont home metoprolol Diabetes, chronic -Accu checks with SSI -Hold home medications while in hospital CHF, diastolic,chronic -Monitor for fluid overload -Resume home Lasix DVT prophylaxis: SCDs Discussed Condition With: Patient and RN
--- NOTE | 2018-01-01 21:25 | P.PNCS ---
Subjective Interval history: PT known from prev adm - hx colon cancer, EGD/colon last adm normal on coumadin for at fib c/o BRB, and dark stools for several days light headed, some dizziness No N/V Objective Result Diagrams: 01/01/18 15:35 01/01/18 15:35 Objective Remarks: PE alert Abd - soft, obese, hernia rt side, non-tender Rectal - BRB on finger Assessment and Plan - Plan Imp: GI bleed - incr BUN - might be fro upper bleed No recurrence of colon cancer agree with present Rx - repeat labs in AM
[2018-01-02] MEDS: Pantoprazole Inj 80 MG in Sodium Chlor 0.9% Inj 100 ML IV.CONT SCH ×2 (05:50→16:24)
[2018-01-02] MEDS ORDERED: Insulin NovoLOG Aspart Correctional Sugar Inj SQ SCH (08:00)
[2018-01-02] MEDS: Insulin NovoLOG Aspart Correctional Sugar Inj SQ SCH ×4 (08:45→23:05)
[2018-01-02] MEDS ORDERED: Anastrozole 1 MG Tablet PO SCH (09:00)
[2018-01-02] MEDS: Isosorbide Mononitrate 30 MG ER 24HR Tablet (Imdur) PO SCH ×2 (09:26→10:30)
[2018-01-02] MEDS: Calcium Carbonate 500 MG Tablet PO SCH ×2 (09:26→23:02)
[2018-01-02] MEDS: Folic Acid 1 MG Tablet PO SCH (09:26)
[2018-01-02] MEDS: Furosemide 40 MG Tablet PO SCH ×2 (09:26→23:02)
--- NOTE | 2018-01-02 10:14 | ECG ---
Date Performed: 01/01/2018 Time Performed: 15:35:16 PTAGE: 77 years EKG: Sinus rhythm WITH OCCASIONAL SUPRAVENTRICULAR PREMATURE COMPLEXES MARKED LEFT AXIS DEVIATION INTRAVENTRICULAR CON DUCTION DELAY LEFT VENTRICULAR HYPERTROPHY AND ST-T CHANGE POSSIBLE SEPTAL MYOCARDIAL INFARCTION PROB ABLE LATERAL MYOCARDIAL INFARCTION Since the previous tracing, no significant change noted ABNORMAL E CG PREVIOUS TRACING : 11/24/17 DOCTOR: Srikanth Magana Interpretating Date/Time 01/02/2018 10:12:59
[2018-01-02] MEDS: Sucralfate 1 GM Tablet PO SCH ×2 (10:27→16:25)
[2018-01-02] MEDS: Anastrozole 1 MG Tablet PO SCH (10:27)
[2018-01-02 10:32] LABS: Baso # (Auto) 0.1 th/mm3 (0.0-0.2); Baso % (Auto) 0.8 % (0.0-2.0); Eos # (Auto) 0.2 th/mm3 (0.0-0.4); Eos % (Auto) 2.4 % (0.0-4.0); Hematocrit 29.1 % (35.0-46.0); Lymph % (Auto) 26.8 % (9.0-44.0); Mean Corpuscular Hemoglobin 25.2 pg (27.0-34.0); Mean Corpuscular Volume 81.1 fL (80.0-100.0); Mean Platelet Volume 8.5 fL (7.0-11.0); Mono # (Auto) 0.8 th/mm3 (0.0-0.9); Mono % (Auto) 10.7 % (0.0-8.0); Neut # (Auto) 4.5 th/mm3 (1.8-7.7); Neut % (Auto) 59.3 % (16.0-70.0); Platelet Count 179 th/mm3 (150-450); Red Blood Count 3.58 mil/mm3 (4.00-5.30); Red Cell Distribution Width 19.5 % (11.6-17.2); White Blood Count 7.6 th/mm3 (4.0-11.0)
[2018-01-02 11:33] LABS: Calcium 8.8 mg/dL (8.5-10.1); Carbon Dioxide 29.2 meq/L (21.0-32.0); Magnesium 2.4 mg/dL (1.5-2.5); Potassium 4.2 meq/L (3.5-5.1)
[2018-01-02 11:36] LABS: Phosphorus 3.5 mg/dL (2.5-4.9)
--- NOTE | 2018-01-02 13:35 | P.PNIM ---
Subjective Interval history: Patient reports she feels better compared to yesterday. Last bowel movement was overnight and it was melena. Physical Exam Vital signs: Vital Signs 01/01/18 14:21 01/01/18 15:32 01/01/18 18:33 Temperature 98.0 F 98.1 F Pulse Rate 65 64 Respiratory Rate 20 20 Blood Pressure 105/51 L 101/53 L Pulse Oximetry 93 L 99 01/01/18 20:11 01/01/18 20:12 01/01/18 21:45 Temperature 98.3 F 98.3 F 97.8 F Pulse Rate 80 72 66 Respiratory Rate 20 20 20 Blood Pressure 109/59 L 109/59 L 92/58 L Pulse Oximetry 96 01/01/18 21:51 01/01/18 22:33 01/01/18 23:46 Temperature 97.8 F 97.6 F Pulse Rate 75 66 76 Respiratory Rate 19 22 Blood Pressure 121/57 L 92/58 L 110/55 L Pulse Oximetry 97 01/02/18 00:13 01/02/18 03:55 01/02/18 07:00 Temperature 98.1 F 98.1 F Pulse Rate 70 75 Respiratory Rate 15 22 Blood Pressure 111/57 L 112/89 Pulse Oximetry 100 93 L 93 L 01/02/18 07:41 01/02/18 08:00 01/02/18 11:42 Temperature 97.5 F L 97.6 F Pulse Rate 79 63 Respiratory Rate 16 16 Blood Pressure 134/68 122/56 L Pulse Oximetry 93 L 93 L 96 Intake & Output 01/01/18 01/02/18 01/02/18 18:59 06:59 18:59 Intake Total 500 / 500 Balance 500 / 500 Weight 102.512 kg Intake: IV 100 / 100 Protonix Inj 80 MG In NS Inj 100 / 100 100 ML @ 10 mls/hr IV.CONT CONT FIGUEROA Rx#:[id number] Intake (Blood Product) Amt 400 / 400 Rbc As-3 Leukoreduced Unit 400 / 400 [id number] Other: # Voids 1 Narrative: GENERAL: well nourished patient in no acute distress. CARDIOVASCULAR: Regular rate and rhythm. RESPIRATORY: No accessory muscle use. Clear to auscultation. Breath sounds equal bilaterally. GASTROINTESTINAL: Abdomen soft, non-tender, nondistended. Hepatic and splenic margins not palpable. MUSCULOSKELETAL: Extremities without clubbing, cyanosis, or edema. No obvious deformities. NEUROLOGICAL: Awake and alert. No obvious cranial nerve deficits. Motor grossly within normal limits. Normal speech Results - Labs CBC & Chem 7: 01/02/18 10:13 01/02/18 10:13 Laboratory Results - last 24 hr 01/01/18 01/01/18 01/01/18 15:35 15:35 15:35 WBC 9.1 RBC 2.85 L Hgb 7.1 L Hct 22.5 L MCV 78.8 L MCH 24.9 L MCHC 31.6 L RDW 20.6 H Plt Count 213 MPV 8.8 Neut % (Auto) 47.6 Lymph % (Auto) 38.9 Cameron % (Auto) 10.3 H Eos % (Auto) 2.3 Baso % (Auto) 0.9 Neut # (Auto) 4.3 Lymph # (Auto) 3.5 Cameron # (Auto) 0.9 Eos # (Auto) 0.2 Baso # (Auto) 0.1 WBC Differential . Differential Comment Auto diff final PT 20.0 H INR 2.0 APTT 30.9 Sodium Potassium Chloride Carbon Dioxide Anion Gap BUN Creatinine Estimated GFR POC Glucose Random Glucose Calcium Phosphorus Magnesium Total Bilirubin AST ALT Alkaline Phosphatase Troponin I B-Natriuretic Peptide Total Protein Albumin Blood Type A Positive Antibody Screen Negative MTS Gel Crossmatch 01/01/18 01/01/18 01/01/18 15:35 15:35 15:35 WBC RBC Hgb Hct MCV MCH MCHC RDW Plt Count MPV Neut % (Auto) Lymph % (Auto) Cameron % (Auto) Eos % (Auto) Baso % (Auto) Neut # (Auto) Lymph # (Auto) Cameron # (Auto) Eos # (Auto) Baso # (Auto) WBC Differential Differential Comment PT INR APTT Sodium 137 Potassium 4.2 Chloride 101 Carbon Dioxide 26.4 Anion Gap 10 BUN 42 H Creatinine 1.56 H Estimated GFR 32 L POC Glucose Random Glucose 155 H Calcium 8.7 Phosphorus Magnesium Total Bilirubin 0.5 AST 32 ALT 24 Alkaline Phosphatase 100 Troponin I Less than 0.02 L B-Natriuretic Peptide 1279 H Total Protein 8.0 Albumin 3.1 L Blood Type Antibody Screen MTS Gel Crossmatch See Detail 01/01/18 01/02/18 01/02/18 20:20 07:51 10:13 WBC 7.6 RBC 3.58 L Hgb 9.0 L Hct 29.1 L MCV 81.1 MCH 25.2 L MCHC 31.0 L RDW 19.5 H Plt Count 179 MPV 8.5 Neut % (Auto) 59.3 Lymph % (Auto) 26.8 Cameron % (Auto) 10.7 H Eos % (Auto) 2.4 Baso % (Auto) 0.8 Neut # (Auto) 4.5 Lymph # (Auto) 2.0 Cameron # (Auto) 0.8 Eos # (Auto) 0.2 Baso # (Auto) 0.1 WBC Differential . Differential Comment Auto diff final PT INR APTT Sodium Potassium Chloride Carbon Dioxide Anion Gap BUN Creatinine Estimated GFR POC Glucose 118 H 121 H Random Glucose Calcium Phosphorus Magnesium Total Bilirubin AST ALT Alkaline Phosphatase Troponin I B-Natriuretic Peptide Total Protein Albumin Blood Type Antibody Screen MTS Gel Crossmatch 01/02/18 01/02/18 10:13 11:41 WBC RBC Hgb Hct MCV MCH MCHC RDW Plt Count MPV Neut % (Auto) Lymph % (Auto) Cameron % (Auto) Eos % (Auto) Baso % (Auto) Neut # (Auto) Lymph # (Auto) Cameron # (Auto) Eos # (Auto) Baso # (Auto) WBC Differential Differential Comment PT INR APTT Sodium 142 Potassium 4.2 Chloride 103 Carbon Dioxide 29.2 Anion Gap 10 BUN 32 H Creatinine 1.25 H Estimated GFR 42 L POC Glucose 144 H Random Glucose 122 H Calcium 8.8 Phosphorus 3.5 Magnesium 2.4 Total Bilirubin AST ALT Alkaline Phosphatase Troponin I B-Natriuretic Peptide Total Protein Albumin 3.0 L Blood Type Antibody Screen MTS Gel Crossmatch - Imaging Impressions Chest X-Ray 01/01/18 15:32 CONCLUSION: 1. Cardiomegaly with slight central pulmonary vascular congestion. Abdomen X-Ray 01/01/18 15:50 CONCLUSION: No evidence of acute process or significant stool retention. Assessment and Plan - Plan 77 y/o female with a medical history significant for atrial fibrillation on Coumadin, history of bilateral pulmonary embolus 7 years ago on chronic anticoagulation with Coumadin, history of breast cancer, diabetes, diastolic heart failure and history of colorectal cancer status post ascending colectomy February 2015 presented to the ED with complaints of black tarry stools for 3 days. Acute blood loss/symptomatic anemia, likely related to upper GI bleed -Appreciate colorectal surgery input. Concerned this may be an upper GI bleed in a patient who requires anticoagulation. -Consult GI to consider EGD -Protonix IV -Clear liquid diet. -S/P two units of PRBC transfusion. Status post vitamin K -Serial H&H. Monitor for bleeding Afib, chronic -Hold anticoagulation. Need GI clearance to restart anticoagulation. -Monitor telemetry -Cont home metoprolol Diabetes, chronic -Accu checks with SSI -Hold home medications while in hospital Acute on chronic diastolic CHF: Likely secondary to acute blood loss anemia -Patient received PRBC transfusion. Monitor for fluid overload -Continue Lasix, Toprol. CKD: Stable. Continue to monitor. DVT prophylaxis: SCDs Discussed Condition With: Patient and RN
--- NOTE | 2018-01-02 15:06 | P.CONGI ---
History of Present Illness Consult date: 01/02/18 Consult reason: anemia, ? upper GIB Chief complaint: GI bleed,symptomatic anemia History of Present Illness: This is a 77 yo F with PMH significant breast cancer S/P lumpectomy and radiation, colon cancer S/P ascending colectomy with primary anastomosis, hypertension, hyperlipidemia, insulin-dependent diabetes mellitus, multi-vessel nonobstructive coronary artery disease, atrial fibrillation on Coumadin for anticoagulation, history of gastric ulcer, and congestive heart failure who presented to the ER earlier today with complaints of black stools, weakness, and anemia. Pt has known history of iron deficiency anemia and was on iron supplementation, states she stopped taking these 4-5 days ago because they were causing constipation. Despite discontinuing the iron she continues to report black, tarry stools. States a few episodes a day. Reports some intermittent nausea, denies any emesis. Denies abdominal pain. Patient is on Coumadin, last dosage was yesterday. She denies any NSAIDs or alcohol intake. She does not smoke. She was seen by her die mounter today and hgb was found to be 7.1. Pts last EGD and colonoscopy were done at [facility] by Dr. Meyer on Nov 23 --> Normal esophagus, one healing antral ulcer, normal duodenum, no indication of recent or active bleeding in EGD, solid black stool in the rectum, sigmoid, and transverse colon making the scope unable to advance to right sign of colon however there was no active bleeding noted, diverticulosis without diverticulitis. No biopsies were taken. <Alysa Baig - Last Filed: 01/02/18 14:49> Review of Systems Constitutional: Reports weakness Gastrointestinal: Reports black, tarry stools, Reports nausea, Denies abdominal pain, Denies incontinent of stools, Denies vomiting <Alysa Baig - Last Filed: 01/02/18 14:49> PMFSH - History History Provided By: Patient - Medical History Medical History: Medical History (Last Reviewed 01/01/18 @ 23:40 by GREGORIO Ruelas) Atrial fibrillation with RVR Diabetes mellitus Diastolic heart failure HX: breast cancer History of colon cancer Hx of radiation therapy Hx pulmonary embolism - Surgical History Surgical History: Surgical History (Last Reviewed 01/01/18 @ 23:40 by GREGORIO Ruelas) H/O cardiac catheterization H/O carotid endarterectomy H/O esophagogastroduodenoscopy H/O right hemicolectomy H/O ventral hernia repair History of lumpectomy of left breast Hx of colonoscopy S/P appy - Family History Family History: Family History (Last Reviewed 01/01/18 @ 23:40 by GREGORIO Ruelas) Sister Pulmonary embolism Mother Stroke Uterine cancer Father Stroke - Tobacco History Second Hand Smoke Exposure: No Tobacco Use In Past 30 Days: No Smoking Status: Former smoker Tobacco Type: Cigarettes - Alcohol History How Often Do You Have a Drink Containing Alcohol: Never - Substance Use History Substance History: No History of Abuse - Travel History Recent Travel in the [place] Within the Last 8 Weeks: No Recent Travel Out of the Country Within the Last 8 Weeks: No - Immunization History Tetanus Immunization: Unsure <Alysa Baig - Last Filed: 01/02/18 14:49> - Medical History Medical History: Medical History (Last Reviewed 01/01/18 @ 23:40 by GREGORIO Ruelas) Atrial fibrillation with RVR Diabetes mellitus Diastolic heart failure HX: breast cancer History of colon cancer Hx of radiation therapy Hx pulmonary embolism - Surgical History Surgical History: Surgical History (Last Reviewed 01/01/18 @ 23:40 by GREGORIO Ruelas) H/O cardiac catheterization H/O carotid endarterectomy H/O esophagogastroduodenoscopy H/O right hemicolectomy H/O ventral hernia repair History of lumpectomy of left breast Hx of colonoscopy S/P appy - Family History Family History: Family History (Last Reviewed 01/01/18 @ 23:40 by GREGORIO Ruelas) Sister Pulmonary embolism Mother Stroke Uterine cancer Father Stroke <Maribel Moore - Last Filed: 01/02/18 21:33> Medications and Allergies Active Medications: Active Medications Albuterol (Duoneb Neb (Prn)) 1 ampul NEB Q2HR NEB PRN PRN Reason: SHORTNESS OF BREATH Anastrozole (Arimidex) 1 mg PO DAILY [facility] Last Admin: 01/02/18 10:27 Dose: 1 mg Calcium Carbonate (Oscal) 500 mg PO BID [facility] Last Admin: 01/02/18 09:26 Dose: 500 mg Dextrose (D50w Vial) 50 ml IV.PUSH UNSCH PRN PRN Reason: PER HYPOGLYCEMIA PROTOCOL Folic Acid (Folic Acid) 1 mg PO DAILY [facility] Last Admin: 01/02/18 09:26 Dose: 1 mg Furosemide (Lasix) 40 mg PO BID [facility] Last Admin: 01/02/18 09:26 Dose: 40 mg Glucagon (Glucagon Inj) 1 mg OTHER PRN PRN PRN Reason: for Hypoglycemia Protocol Pantoprazole Sodium 80 mg/ (Sodium Chloride) 100 mls @ 10 mls/hr IV.CONT CONT [facility] Last Admin: 01/02/18 05:50 Dose: 10 mls/hr Insulin Aspart (Novolog Insulin Correctional Sugar Inj) 0 unit SQ ACHS [facility]; Protocol Last Admin: 01/02/18 11:52 Dose: Not Given Isosorbide Mononitrate (Imdur) 30 mg PO DAILY [facility] Last Admin: 01/02/18 10:30 Dose: Not Given Metoprolol Succinate (Toprol Xl) 12.5 mg PO DAILY [facility] Last Admin: 01/02/18 09:26 Dose: 12.5 mg Midodrine (Proamatine) 5 mg PO QID [facility] Last Admin: 01/02/18 09:26 Dose: 5 mg Potassium Chloride (Klor-Con 10) 10 meq PO BID [facility] Last Admin: 01/02/18 09:26 Dose: 10 meq Pravastatin Sodium (Pravachol) 20 mg PO DAILY [facility] Last Admin: 01/02/18 09:26 Dose: 20 mg Pravastatin Sodium (Pravachol) 20 mg PO HS [facility] Ropinirole HCl (Requip) 0.5 mg PO HS [facility] Sodium Chloride (Ns Flush) 2 ml IV.FLUSH BID [facility] Last Admin: 01/02/18 09:27 Dose: 2 ml Sodium Chloride (Ns Flush) 2 ml IV.FLUSH PRN PRN PRN Reason: FLUSH AFTER USING IV ACCESS Sucralfate (Carafate) 1 gm PO BIDAC [facility] Last Admin: 01/02/18 10:27 Dose: 1 gm <Alysa Baig - Last Filed: 01/02/18 14:49> Active Medications: Active Medications Albuterol (Duoneb Neb (Prn)) 1 ampul NEB Q2HR NEB PRN PRN Reason: SHORTNESS OF BREATH Anastrozole (Arimidex) 1 mg PO DAILY [facility] Last Admin: 01/02/18 10:27 Dose: 1 mg Calcium Carbonate (Oscal) 500 mg PO BID [facility] Last Admin: 01/02/18 09:26 Dose: 500 mg Dextrose (D50w Vial) 50 ml IV.PUSH UNSCH PRN PRN Reason: PER HYPOGLYCEMIA PROTOCOL Folic Acid (Folic Acid) 1 mg PO DAILY [facility] Last Admin: 01/02/18 09:26 Dose: 1 mg Furosemide (Lasix) 40 mg PO BID [facility] Last Admin: 01/02/18 09:26 Dose: 40 mg Glucagon (Glucagon Inj) 1 mg OTHER PRN PRN PRN Reason: for Hypoglycemia Protocol Pantoprazole Sodium 80 mg/ (Sodium Chloride) 100 mls @ 10 mls/hr IV.CONT CONT [facility] Last Admin: 01/02/18 16:24 Dose: 10 mls/hr Insulin Aspart (Novolog Insulin Correctional Sugar Inj) 0 unit SQ ACHS [facility]; Protocol Last Admin: 01/02/18 16:28 Dose: Not Given Isosorbide Mononitrate (Imdur) 30 mg PO DAILY [facility] Last Admin: 01/02/18 10:30 Dose: Not Given Metoprolol Succinate (Toprol Xl) 12.5 mg PO DAILY [facility] Last Admin: 01/02/18 09:26 Dose: 12.5 mg Midodrine (Proamatine) 5 mg PO QID [facility] Last Admin: 01/02/18 18:54 Dose: 5 mg Potassium Chloride (Klor-Con 10) 10 meq PO BID [facility] Last Admin: 01/02/18 09:26 Dose: 10 meq Pravastatin Sodium (Pravachol) 20 mg PO DAILY [facility] Last Admin: 01/02/18 09:26 Dose: 20 mg Pravastatin Sodium (Pravachol) 20 mg PO HS [facility] Ropinirole HCl (Requip) 0.5 mg PO HS [facility] Sodium Chloride (Ns Flush) 2 ml IV.FLUSH BID [facility] Last Admin: 01/02/18 09:27 Dose: 2 ml Sodium Chloride (Ns Flush) 2 ml IV.FLUSH PRN PRN PRN Reason: FLUSH AFTER USING IV ACCESS Sucralfate (Carafate) 1 gm PO BIDAC [facility] Last Admin: 01/02/18 16:25 Dose: 1 gm <BratuHermelindae - Last Filed: 01/02/18 21:33> Allergies Allergy/AdvReac Type Severity Reaction Status Date / Time No Known Allergies Allergy Verified 01/01/18 14:23 Home Medications Medication Instructions Recorded Confirmed Type anastrozole 1 mg PO DAILY 01/01/18 01/01/18 History dapagliflozin [Farxiga] 10 mg PO QAM 01/01/18 01/01/18 History furosemide [Lasix] 40 mg PO BID PRN 01/01/18 01/01/18 History lovastatin 20 mg PO DAILY 01/01/18 01/01/18 History metformin 1,000 mg PO BID 01/01/18 01/01/18 History midodrine 5 mg PO QID 01/01/18 01/01/18 History ranitidine HCl 300 mg PO DAILY 01/01/18 01/01/18 History Exam Vital signs: Vital Signs 01/01/18 15:32 01/01/18 18:33 01/01/18 20:11 Temperature 98.1 F 98.3 F Pulse Rate 64 80 Respiratory Rate 20 20 Blood Pressure 101/53 L 109/59 L Pulse Oximetry 99 96 01/01/18 20:12 01/01/18 21:45 01/01/18 21:51 Temperature 98.3 F 97.8 F 97.8 F Pulse Rate 72 66 75 Respiratory Rate 20 20 19 Blood Pressure 109/59 L 92/58 L 121/57 L Pulse Oximetry 01/01/18 22:33 01/01/18 23:46 01/02/18 00:13 Temperature 97.6 F 98.1 F Pulse Rate 66 76 70 Respiratory Rate 22 15 Blood Pressure 92/58 L 110/55 L 111/57 L Pulse Oximetry 97 100 01/02/18 03:55 01/02/18 07:00 01/02/18 07:41 Temperature 98.1 F 97.5 F L Pulse Rate 75 79 Respiratory Rate 22 16 Blood Pressure 112/89 134/68 Pulse Oximetry 93 L 93 L 93 L 01/02/18 08:00 01/02/18 11:42 Temperature 97.6 F Pulse Rate 63 Respiratory Rate 16 Blood Pressure 122/56 L Pulse Oximetry 93 L 96 Intake & Output 01/01/18 01/02/18 01/02/18 18:59 06:59 18:59 Intake Total 500 / 500 Balance 500 / 500 Weight 102.512 kg Intake: IV 100 / 100 Protonix Inj 80 MG In NS Inj 100 / 100 100 ML @ 10 mls/hr IV.CONT CONT [facility] Rx#:[id number] Intake (Blood Product) Amt 400 / 400 Rbc As-3 Leukoreduced Unit 400 / 400 [id number] Other: # Voids 1 - Constitutional no acute distress - Routine HEENT Exam Head: Present: normocephalic, atraumatic - Routine Respiratory Exam Absent: accessory muscle use - Routine Cardiovascular Exam Present: murmur, irregularly irregular - Routine Abdominal Exam Present: soft, normoactive bowel sounds, hernia. Absent: tenderness Comments: Protuberant abdomen - Routine Skin Exam Present: dry, pallor, warm - Routine Neurological Exam Present: alert, oriented X3 <Alysa Baig - Last Filed: 01/02/18 14:49> Vital signs: Vital Signs 01/01/18 21:45 01/01/18 21:51 01/01/18 22:33 Temperature 97.8 F 97.8 F Pulse Rate 66 75 66 Respiratory Rate 20 19 Blood Pressure 92/58 L 121/57 L 92/58 L Pulse Oximetry 01/01/18 23:46 01/02/18 00:13 01/02/18 03:55 Temperature 97.6 F 98.1 F 98.1 F Pulse Rate 76 70 75 Respiratory Rate 22 15 22 Blood Pressure 110/55 L 111/57 L 112/89 Pulse Oximetry 97 100 93 L 01/02/18 07:00 01/02/18 07:41 01/02/18 08:00 Temperature 97.5 F L Pulse Rate 79 Respiratory Rate 16 Blood Pressure 134/68 Pulse Oximetry 93 L 93 L 93 L 01/02/18 11:42 01/02/18 19:11 Temperature 97.6 F 98.2 F Pulse Rate 63 75 Respiratory Rate 16 20 Blood Pressure 122/56 L 113/56 L Pulse Oximetry 96 94 L Intake & Output 01/02/18 01/02/18 01/03/18 06:59 18:59 06:59 Intake Total 500 / 500 580 / 580 Balance 500 / 500 580 / 580 Intake: IV 100 / 100 100 / 100 Protonix Inj 80 MG In NS Inj 100 / 100 100 / 100 100 ML @ 10 mls/hr IV.CONT CONT [facility] Rx#:[id number] Oral 480 / 480 Intake (Blood Product) Amt 400 / 400 Rbc As-3 Leukoreduced Unit 400 / 400 [id number] Other: # Voids 1 4 # Bowel Movements 1 <Maribel Moore - Last Filed: 01/02/18 21:33> Results - Labs CBC & Chem 7: 01/02/18 10:13 01/02/18 10:13 Labs: Laboratory Results - last 24 hr 01/01/18 01/01/18 01/01/18 15:35 15:35 15:35 WBC 9.1 RBC 2.85 L Hgb 7.1 L Hct 22.5 L MCV 78.8 L MCH 24.9 L MCHC 31.6 L RDW 20.6 H Plt Count 213 MPV 8.8 Neut % (Auto) 47.6 Lymph % (Auto) 38.9 Burnett % (Auto) 10.3 H Eos % (Auto) 2.3 Baso % (Auto) 0.9 Neut # (Auto) 4.3 Lymph # (Auto) 3.5 Burnett # (Auto) 0.9 Eos # (Auto) 0.2 Baso # (Auto) 0.1 WBC Differential . Differential Comment Auto diff final PT 20.0 H INR 2.0 APTT 30.9 Sodium Potassium Chloride Carbon Dioxide Anion Gap BUN Creatinine Estimated GFR POC Glucose Random Glucose Calcium Phosphorus Magnesium Total Bilirubin AST ALT Alkaline Phosphatase Troponin I B-Natriuretic Peptide Total Protein Albumin Blood Type A Positive Antibody Screen Negative MTS Gel Crossmatch 01/01/18 01/01/18 01/01/18 15:35 15:35 15:35 WBC RBC Hgb Hct MCV MCH MCHC RDW Plt Count MPV Neut % (Auto) Lymph % (Auto) Burnett % (Auto) Eos % (Auto) Baso % (Auto) Neut # (Auto) Lymph # (Auto) Burnett # (Auto) Eos # (Auto) Baso # (Auto) WBC Differential Differential Comment PT INR APTT Sodium 137 Potassium 4.2 Chloride 101 Carbon Dioxide 26.4 Anion Gap 10 BUN 42 H Creatinine 1.56 H Estimated GFR 32 L POC Glucose Random Glucose 155 H Calcium 8.7 Phosphorus Magnesium Total Bilirubin 0.5 AST 32 ALT 24 Alkaline Phosphatase 100 Troponin I Less than 0.02 L B-Natriuretic Peptide 1279 H Total Protein 8.0 Albumin 3.1 L Blood Type Antibody Screen MTS Gel Crossmatch See Detail 01/01/18 01/02/18 01/02/18 20:20 07:51 10:13 WBC 7.6 RBC 3.58 L Hgb 9.0 L Hct 29.1 L MCV 81.1 MCH 25.2 L MCHC 31.0 L RDW 19.5 H Plt Count 179 MPV 8.5 Neut % (Auto) 59.3 Lymph % (Auto) 26.8 Burnett % (Auto) 10.7 H Eos % (Auto) 2.4 Baso % (Auto) 0.8 Neut # (Auto) 4.5 Lymph # (Auto) 2.0 Burnett # (Auto) 0.8 Eos # (Auto) 0.2 Baso # (Auto) 0.1 WBC Differential . Differential Comment Auto diff final PT INR APTT Sodium Potassium Chloride Carbon Dioxide Anion Gap BUN Creatinine Estimated GFR POC Glucose 118 H 121 H Random Glucose Calcium Phosphorus Magnesium Total Bilirubin AST ALT Alkaline Phosphatase Troponin I B-Natriuretic Peptide Total Protein Albumin Blood Type Antibody Screen MTS Gel Crossmatch 01/02/18 01/02/18 10:13 11:41 WBC RBC Hgb Hct MCV MCH MCHC RDW Plt Count MPV Neut % (Auto) Lymph % (Auto) Burnett % (Auto) Eos % (Auto) Baso % (Auto) Neut # (Auto) Lymph # (Auto) Burnett # (Auto) Eos # (Auto) Baso # (Auto) WBC Differential Differential Comment PT INR APTT Sodium 142 Potassium 4.2 Chloride 103 Carbon Dioxide 29.2 Anion Gap 10 BUN 32 H Creatinine 1.25 H Estimated GFR 42 L POC Glucose 144 H Random Glucose 122 H Calcium 8.8 Phosphorus 3.5 Magnesium 2.4 Total Bilirubin AST ALT Alkaline Phosphatase Troponin I B-Natriuretic Peptide Total Protein Albumin 3.0 L Blood Type Antibody Screen MTS Gel Crossmatch - Imaging Impressions Chest X-Ray 01/01/18 15:32 CONCLUSION: 1. Cardiomegaly with slight central pulmonary vascular congestion. Abdomen X-Ray 01/01/18 15:50 CONCLUSION: No evidence of acute process or significant stool retention. <Alysa Baig - Last Filed: 01/02/18 14:49> - Labs CBC & Chem 7: 01/02/18 14:36 01/02/18 10:13 Labs: Laboratory Results - last 24 hr 01/01/18 01/02/18 01/02/18 15:35 07:51 10:13 WBC 7.6 RBC 3.58 L Hgb 9.0 L Hct 29.1 L MCV 81.1 MCH 25.2 L MCHC 31.0 L RDW 19.5 H Plt Count 179 MPV 8.5 Neut % (Auto) 59.3 Lymph % (Auto) 26.8 Burnett % (Auto) 10.7 H Eos % (Auto) 2.4 Baso % (Auto) 0.8 Neut # (Auto) 4.5 Lymph # (Auto) 2.0 Burnett # (Auto) 0.8 Eos # (Auto) 0.2 Baso # (Auto) 0.1 WBC Differential . Differential Comment Auto diff final Sodium Potassium Chloride Carbon Dioxide Anion Gap BUN Creatinine Estimated GFR POC Glucose 121 H Random Glucose Calcium Phosphorus Magnesium Albumin MTS Gel Crossmatch See Detail 01/02/18 01/02/18 01/02/18 10:13 11:41 14:36 WBC RBC Hgb 9.2 L Hct MCV MCH MCHC RDW Plt Count MPV Neut % (Auto) Lymph % (Auto) Burnett % (Auto) Eos % (Auto) Baso % (Auto) Neut # (Auto) Lymph # (Auto) Burnett # (Auto) Eos # (Auto) Baso # (Auto) WBC Differential Differential Comment Sodium 142 Potassium 4.2 Chloride 103 Carbon Dioxide 29.2 Anion Gap 10 BUN 32 H Creatinine 1.25 H Estimated GFR 42 L POC Glucose 144 H Random Glucose 122 H Calcium 8.8 Phosphorus 3.5 Magnesium 2.4 Albumin 3.0 L MTS Gel Crossmatch 01/02/18 16:27 WBC RBC Hgb Hct MCV MCH MCHC RDW Plt Count MPV Neut % (Auto) Lymph % (Auto) Burnett % (Auto) Eos % (Auto) Baso % (Auto) Neut # (Auto) Lymph # (Auto) Burnett # (Auto) Eos # (Auto) Baso # (Auto) WBC Differential Differential Comment Sodium Potassium Chloride Carbon Dioxide Anion Gap BUN Creatinine Estimated GFR POC Glucose 141 H Random Glucose Calcium Phosphorus Magnesium Albumin MTS Gel Crossmatch <Maribel Moore - Last Filed: 01/02/18 21:33> Assessment and Plan - Plan Assessment: - Anemia with reports of melena Known history of CHRISTINE, follows hematology outpatient, was on iron supplements until 4-5 days ago, states stopped taking them because they were causing constipation. Came to ER with complaints of black, tarry stools despite no iron supplements, weakness, nausea, and outpt hgb done by die mounter was 7.1. On Coumadin. Denies NSAIDs. Denies ETOH and smoking. EGD and colonoscopy done at [facility] by Dr. Meyer on Nov 23 --> Normal esophagus, one healing antral ulcer, normal duodenum, no indication of recent or active bleeding in EGD, solid black stool in the rectum, sigmoid, and transverse colon making the scope unable to advance to right sign of colon however there was no active bleeding noted, diverticulosis without diverticulitis. No biopsies were taken. - Chronically anticoagulated with Coumadin for a-fib, INR 2 on admission S/P Phytonadione 5mg PO, last dose of Coumadin was yesterday night - History of colon cancer S/P ascending colectomy with primary anastomosis - History of breast cancer S/P lumpectomy and radiation - hypertension, hyperlipidemia, insulin-dependent diabetes mellitus, multi- vessel nonobstructive coronary artery disease, atrial fibrillation on Coumadin for anticoagulation, history of gastric ulcer , and congestive heart failure- per primary team Plan: EGD tomorrow Obtain consent OK for clear liquids today NPO after MN Protonix gtt CRS following Repeat INR in AM Hold Coumadin Monitor H/H S/P 2 U PRBCs Further recommendations based on findings of above Pt has been seen and examined by myself and Dr. Moore and this note is written on her behalf <Alysa Baig - Last Filed: 01/02/18 14:49> - Attending Attestation seen, examined agree with above ct abd/pelvis if egd negative will need capsule endoscopy if active bleeding-bleeding scan hematology consu;t-possible iv infusion <Maribel Moore - Last Filed: 01/02/18 21:33>
[2018-01-02] MEDS ORDERED: Diatrizoate Meglum/Diatrizoate Sod Liq 9 ML UDC PO ONE (21:35)
--- NOTE | 2018-01-02 21:50 | P.PNCS ---
Subjective Interval history: afebrile, VSS UO good less SOB Objective Result Diagrams: 01/02/18 14:36 01/02/18 10:13 Objective Remarks: PE alert Abd - soft, obese, hernia rt side, non-tender Rectal - BRB on finger Assessment and Plan - Plan Imp: GI bleed - incr BUN - might be fro upper bleed - had EGD last visit No recurrence of colon cancer agree with present Rx - repeat labs in AM
--- NOTE | 2018-01-03 02:27 | CT ---
EXAM DATE: 01/03/2018 2:21 AM EST AGE/SEX: 77 years / Female INDICATIONS: Anemia history of colon cancer CLINICAL DATA: This is the patient's initial encounter. Patient reports that signs and symptoms have been present for 1 day and indicates a pain score of 4/10. MEDICAL/SURGICAL HISTORY: Cardiovascular disease. Diabetes. Carcinoma, colon. breast cancer Arthroscopy. right hemicolectomy ventral hernia RADIATION DOSE: 20.59 CTDI (mGy) COMPARISON: POI, CT ABDOMEN AND PELVIS W/ CONTRAST, 01/17/2015. . TECHNIQUE: Multiple contiguous axial images were obtained through the abdomen. Images were obtained using multiple row detector helical technique. Using automated exposure control and adjustment of the mA and/or kV according to patient size, radiation dose was kept as low as reasonably achievable to o btain optimal diagnostic quality images. DICOM format image data is available electronically for rev iew and comparison. FINDINGS: Lower Lungs: Small bilateral pleural effusions. Significant coronary artery atherosclerotic calcifica tions.. Liver: A lobulated contour to the liver. No discrete mass or ductal dilatation. Small gallstones with in an otherwise unremarkable gallbladder. There is a 5 mm stone within the common bile duct. No dilat ation to suggest obstruction. It is approaching the level of the ampulla. Spleen: Homogeneous density without enlargement. Pancreas: Unremarkable without mass or calcification. Kidneys: The left kidney is atrophic. The right kidney is unremarkable. No stones or mass.. Adrenal Glands: Unremarkable. Aorta: Pronounced diffuse calcified atherosclerotic plaque without aneurysmal dilation. Bowel/Mesentery: The bowel loops are grossly unremarkable. The cecum and sigmoid colon have a normal configuration. Abdominal Wall: Small umbilical hernia containing fat. Retroperitoneum: No evidence of adenopathy in the retrocrural, para-aortic, or deep pelvic regions. Bladder: Contours are smooth. Reproductive Organs: No abnormal masses or calcifications seen. Inguinal: The inguinal region is unremarkable without evidence of adenopathy. Bony Structures: Degenerative changes involving the lumbar spine and hips.. CONCLUSION: 1. Cirrhosis. 2. Cholelithiasis and choledocholithiasis. No ductal dilatation. 3. Atrophy of the left kidney. 4. Small bilateral pleural effusions. Electronically signed by: Quinn Young MD 01/03/2018 2:26 AM EST
[2018-01-03] MEDS: Pantoprazole Inj 80 MG in Sodium Chlor 0.9% Inj 100 ML IV.CONT SCH ×2 (03:43→21:30)
[2018-01-03] MEDS: Insulin NovoLOG Aspart Correctional Sugar Inj SQ SCH ×4 (08:07→21:34)
--- NOTE | 2018-01-03 08:32 | P.PNIM ---
Subjective Interval history: Patient is still having soft dark stools. No abdominal pain. Feels fatigued. Will have EGD today. Physical Exam Vital signs: Vital Signs 01/02/18 11:42 01/02/18 19:11 01/03/18 00:00 Temperature 97.6 F 98.2 F 98.0 F Pulse Rate 63 75 61 Respiratory Rate 16 20 20 Blood Pressure 122/56 L 113/56 L 118/57 L Pulse Oximetry 96 94 L 98 01/03/18 04:00 01/03/18 08:00 Temperature 98.6 F 98.4 F Pulse Rate 68 62 Respiratory Rate 16 18 Blood Pressure 91/46 L 106/51 L Pulse Oximetry 95 97 Intake & Output 01/02/18 01/03/18 01/03/18 18:59 06:59 18:59 Intake Total 580 / 580 100 / 100 Balance 580 / 580 100 / 100 Intake: IV 100 / 100 100 / 100 Protonix Inj 80 MG In NS Inj 100 / 100 100 / 100 100 ML @ 10 mls/hr IV.CONT CONT [facility] Rx#:[id number] Oral 480 / 480 Other: # Voids 4 Date of Last Bowel Movement 01/02/18 # Bowel Movements 1 Narrative: GENERAL: well nourished patient in no acute distress. CARDIOVASCULAR: Regular rate and rhythm. RESPIRATORY: No accessory muscle use. bilateral basilar crackles, otherwise CTA in the rest of the lung pérez. GASTROINTESTINAL: Abdomen soft, non-tender, nondistended. Hepatic and splenic margins not palpable. MUSCULOSKELETAL: Extremities without clubbing, cyanosis, or edema. No obvious deformities. NEUROLOGICAL: Awake and alert. No obvious cranial nerve deficits. Motor grossly within normal limits. Normal speech Results - Labs CBC & Chem 7: 01/02/18 23:30 01/02/18 10:13 Laboratory Results - last 24 hr 01/01/18 01/02/18 01/02/18 15:35 10:13 10:13 WBC 7.6 RBC 3.58 L Hgb 9.0 L Hct 29.1 L MCV 81.1 MCH 25.2 L MCHC 31.0 L RDW 19.5 H Plt Count 179 MPV 8.5 Neut % (Auto) 59.3 Lymph % (Auto) 26.8 Rhea % (Auto) 10.7 H Eos % (Auto) 2.4 Baso % (Auto) 0.8 Neut # (Auto) 4.5 Lymph # (Auto) 2.0 Rhea # (Auto) 0.8 Eos # (Auto) 0.2 Baso # (Auto) 0.1 WBC Differential . Differential Comment Auto diff final Sodium 142 Potassium 4.2 Chloride 103 Carbon Dioxide 29.2 Anion Gap 10 BUN 32 H Creatinine 1.25 H Estimated GFR 42 L POC Glucose Random Glucose 122 H Calcium 8.8 Phosphorus 3.5 Magnesium 2.4 Albumin 3.0 L MTS Gel Crossmatch See Detail 01/02/18 01/02/18 01/02/18 11:41 14:36 16:27 WBC RBC Hgb 9.2 L Hct MCV MCH MCHC RDW Plt Count MPV Neut % (Auto) Lymph % (Auto) Rhea % (Auto) Eos % (Auto) Baso % (Auto) Neut # (Auto) Lymph # (Auto) Rhea # (Auto) Eos # (Auto) Baso # (Auto) WBC Differential Differential Comment Sodium Potassium Chloride Carbon Dioxide Anion Gap BUN Creatinine Estimated GFR POC Glucose 144 H 141 H Random Glucose Calcium Phosphorus Magnesium Albumin MTS Gel Crossmatch 01/02/18 01/02/18 01/03/18 22:43 23:30 08:17 WBC RBC Hgb 9.7 L Hct MCV MCH MCHC RDW Plt Count MPV Neut % (Auto) Lymph % (Auto) Rhea % (Auto) Eos % (Auto) Baso % (Auto) Neut # (Auto) Lymph # (Auto) Rhea # (Auto) Eos # (Auto) Baso # (Auto) WBC Differential Differential Comment Sodium Potassium Chloride Carbon Dioxide Anion Gap BUN Creatinine Estimated GFR POC Glucose 132 H 153 H Random Glucose Calcium Phosphorus Magnesium Albumin MTS Gel Crossmatch - Imaging Impressions Abdomen/Pelvis CT 01/03/18 00:00 CONCLUSION: 1. Cirrhosis. 2. Cholelithiasis and choledocholithiasis. No ductal dilatation. 3. Atrophy of the left kidney. 4. Small bilateral pleural effusions. Assessment and Plan - Plan 77 y/o female with a medical history significant for atrial fibrillation on Coumadin, history of bilateral pulmonary embolus 7 years ago on chronic anticoagulation with Coumadin, history of breast cancer, diabetes, diastolic heart failure and history of colorectal cancer status post ascending colectomy February 2015 presented to the ED with complaints of black tarry stools for 3 days. Acute blood loss/symptomatic anemia, likely related to upper GI bleed -Appreciate colorectal surgery input. Concerned this may be an upper GI bleed in a patient who requires anticoagulation. -EGD today per GI. -Protonix IV -Clear liquid diet. -S/P two units of PRBC transfusion. Status post vitamin K -Serial H&H. Monitor for bleeding Afib, chronic -Hold anticoagulation. Need GI clearance to restart anticoagulation. -Monitor telemetry -Cont home metoprolol Diabetes, chronic -Accu checks with SSI -Hold home medications while in hospital Acute on chronic diastolic CHF: Likely secondary to acute blood loss anemia -Patient received PRBC transfusion. Monitor for fluid overload -Continue Lasix, Toprol. Non obstructive Cholelithiasis and choledocholithiasis on CT: - No ductal dilation . - Check LFT's - May need repeat imaging to ensure choledocholithiasis resolves - GI input appreciated. CKD: Stable. Continue to monitor. DVT prophylaxis: SCDs Discussed Condition With: Patient and RN
--- NOTE | 2018-01-03 11:00 | GIPROC ---
[facility] [address] [facility]. [facility], [address] EGD PROCEDURE REPORT EXAM DATE: 01/03/2018 PATIENT NAME: Anna Mera MR #: [id number] BIRTHDATE: 1940 ATTENDING: Maribel Moore MD ORDER #: [id number] MEDICAL CODER: Alexus Torres and Agata Shafer STATUS: inpatient INDICATIONS: The patient is a 77 yr old female here for an EGD due to anemia, gi bleeding PROCEDURE PERFORMED: EGD w/ biopsy egd with APC ablation MEDICATIONS: Per Anesthesia and None. TOPICAL ANESTHETIC: none CONSENT: The patient understands the risks and benefits of the procedure and understands that these risks include, but are not limited to: sedation, allergic reaction, infection, perforation and/or bleeding. Alternative means of evaluation and treatment include, among others: physical exam, x-rays, and/or surgical intervention. The patient elects to proceed with this endoscopic procedure. medical equipment was checked for proper function. Hand hygiene and appropriate measures for infection prevention was taken. After the risks, benefits and alternatives of the procedure were thoroughly explained, Informed consent was verified, confirmed and timeout was successfully executed by the treatment team. The patient was anesthetized with topical anesthesia and the Pentax EG-[id number] endoscope was introduced through the mouth and advanced to the second portion of the duodenum. Retroflexed views revealed a hiatal hernia The gastroscope was then slowly withdrawn and removed. 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 ADVERSE EVENTS: There were no complications. IMPRESSIONS: 1. 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 Retroflexed views revealed a hiatal hernia RECOMMENDATIONS: 1. Await biopsy results. Biopsy results will not be ready for 7-10 days. If you don't hear from us in two weeks, call our office for biopsy results. 2. Anti-reflux regimen 3. Continue PPI 4. Avoid NSAIDS 5. Resume diet capsule endoscopy op hematology consult ok to restart anticoagulation from gi point work-up for liver cirrhosis PATIENT CONDITION: stable DISPOSITION: Inpatient REPEAT EXAM: Return 1 year EGD Maribel Moore MD eSigned: Maribel Moore MD 01/03/2018 10:59 AM cc: PATIENT NAME: Anna Mera MR#: [id number]
[2018-01-03] MEDS: Isosorbide Mononitrate 30 MG ER 24HR Tablet (Imdur) PO SCH (11:15)
[2018-01-03] MEDS: Calcium Carbonate 500 MG Tablet PO SCH ×2 (11:15→21:30)
[2018-01-03] MEDS: Furosemide 40 MG Tablet PO SCH ×2 (11:16→21:39)
[2018-01-03] MEDS: Sucralfate 1 GM Tablet PO SCH ×2 (11:17→18:22)
[2018-01-03] MEDS: Anastrozole 1 MG Tablet PO SCH (11:17)
[2018-01-03] MEDS: Folic Acid 1 MG Tablet PO SCH (11:17)
[2018-01-03 12:45] LABS: INR 1.2 Ratio; Prothrombin Time 11.8 sec (9.8-11.6)
[2018-01-03 12:53] LABS: Albumin 3.1 g/dL (3.4-5.0)
[2018-01-03 12:55] LABS: Carbon Dioxide 29.8 meq/L (21.0-32.0)
[2018-01-03 12:59] LABS: Carcinoembryonic Antigen 1.9 ng/mL (0.2-5.0)
[2018-01-03 14:24] LABS: Hematocrit 28.2 % (35.0-46.0); Mean Corpuscular HGB Conc 32.1 % (32.0-36.0); Mean Corpuscular Hemoglobin 25.5 pg (27.0-34.0); Mean Corpuscular Volume 79.4 fL (80.0-100.0); Mean Platelet Volume 8.8 fL (7.0-11.0); Platelet Count 205 th/mm3 (150-450); Red Blood Count 3.55 mil/mm3 (4.00-5.30); Red Cell Distribution Width 19.9 % (11.6-17.2); White Blood Count 8.2 th/mm3 (4.0-11.0)
[2018-01-03 21:08] LABS: % Iron Saturation 9.6 % (20-50); Iron 38 mcg/dL (50-170); Total Iron Binding Capacity 395 mcg/dL (250-450)
[2018-01-03 21:33] LABS: Ferritin 35 ng/mL (8-252); Vitamin B12 1369 pg/mL (193-986)
--- NOTE | 2018-01-03 22:07 | P.PNCS ---
Subjective Interval history: afebrile, VSS UO good no obv BRB Objective Result Diagrams: 01/03/18 14:10 01/03/18 12:15 Objective Remarks: PE alert Abd - soft, obese, hernia rt side, non-tender Rectal - dry Assessment and Plan - Plan Imp: GI bleed - incr BUN - might be from upper bleed - had EGD last visit, another EGD done today No recurrence of colon cancer agree with present Rx - repeat labs in AM
--- NOTE | 2018-01-03 22:23 | MB ---
cc: Edwin Galvan MD DATE: 01/03/2018 REASON FOR CONSULTATION: Consult requested by Dr. Moore for evaluation of microcytic hypochromic anemia. HISTORY OF PRESENT ILLNESS: Anna is a 77-year-old female. She is under the care of her primary physician, Dr. Crystal. The patient lives in [place]. She stated that she was diagnosed with left breast cancer in 2014. She underwent lumpectomy by Dr. Meenu Schwartz at [facility] in [place]. Subsequently, she had radiation therapy. She was evaluated by Dr. Nunn and was started on anastrozole. After Dr. Nunn closed his practice, she transferred her care to Dr. Tompkins, oncologist in [place]. The patient has been on anastrozole since then. In 02/2015, she was diagnosed with right-sided colon cancer and underwent right hemicolectomy by Dr. Mcmullen. She did not require any chemotherapy. The patient recently noticed rectal bleeding. She was admitted to [facility] on 10/23/2017. She was anemic. She had received blood transfusion and she was discharged home on oral iron. The patient says that when she was taking oral iron, she got severely constipated and after a couple of weeks, she had stopped taking it. She went to see her oncologist for a routine visit for breast and colon cancer. The blood tests showed that the hemoglobin had dropped to 7. She was advised to go to the emergency room. The patient came in to [facility] a couple of days ago. The CBC showed a white count of 9.1, hemoglobin 7.1, platelet count 213, MCV 78. The patient had received 2 units of blood transfusion. Her hemoglobin has improved to 9.0. GI was consulted. Colorectal surgery was consulted. Recommendation was made for upper endoscopy. She had an upper endoscopy today. Gastric AVM was noted and was cauterized. Dr. Moore is consulting hematology for anemia. The patient states that she recently resumed oral iron and she got really constipated and noticed that her stools were dark. She is unable to tolerate oral iron. The rest of the review of systems is negative. PAST MEDICAL HISTORY: Left breast cancer in 2014, right-sided colon cancer in 2016, atrial fibrillation, diabetes mellitus, diastolic heart failure, history of pulmonary embolism. PAST SURGICAL HISTORY: Left breast lumpectomy, right hemicolectomy, upper endoscopy, carotid endarterectomy, cardiac catheterization, ventral hernia repair, colonoscopy, appendectomy. ALLERGIES: NONE. MEDICATIONS PRIOR TO COMING TO HOSPITAL: 1. Anastrozole 1 mg daily. 2. Farxiga 10 mg daily. 3. Lasix 40 mg twice a day. 4. Lovastatin 20 mg daily. 5. Metformin 1000 mg twice a day. 6. Midodrine 5 mg 4 times a day. 7. Ranitidine 300 mg daily. FAMILY HISTORY: None for malignancy. SOCIAL HISTORY: The patient does not smoke cigarettes, does not drink alcohol. PHYSICAL EXAMINATION: GENERAL: A well-developed, elderly white female in no apparent distress. VITAL SIGNS: Temperature 98.5, heart rate is 71, blood pressure 125/57, O2 saturation 93%. HEAD, EYES, EARS, NOSE, AND THROAT: Pupils equal, round, reactive to light and accommodation, extraocular movements intact. Anicteric. No oral lesions noted. No thrush noted. NECK: Supple. No JVD. No masses noted. LUNGS: Clear. No wheezing, rhonchi, or rales. HEART: Regular rate and rhythm. No murmur heard. ABDOMEN: Distended, unable to feel for liver or spleen. EXTREMITIES: No pedal edema. No cyanosis, no clubbing. NEUROLOGIC: Awake, alert, oriented x 3. Sensory and motor seem to be intact. SKIN: No bruises or petechiae noted. LYMPH NODES: No cervical, supraclavicular, or axillary lymphadenopathy noted. BACK: There is no spinal tenderness noted. ASSESSMENT: 1. Microcytic hypochromic anemia, most likely due to iron deficiency. The source of iron deficiency is gastrointestinal blood loss. The patient is unable to tolerate oral iron. 2. History of left breast cancer diagnosed in 2014, status post lumpectomy and radiation therapy. Currently on anastrozole. 3. History of right-sided colon cancer in 02/2015. Underwent right hemicolectomy. Did not require any chemotherapy. PLAN: I have reviewed her available records. This is her second admission in the last few months. Both times, she was admitted for severe anemia. However, I do not see any iron studies were drawn prior to giving her blood transfusion on both admission. The patient stated that she had 3 units of blood transfusion on her last admission a couple of months ago. This time, she had received 2 units. She had an upper endoscopy, which showed a gastric AVM, which was cauterized. Most likely that could be the source of bleeding and iron deficiency. The patient is unable to tolerate oral iron. Therefore, my recommendation is for iron infusion with Venofer. However, I will order the anemia workup with iron studies, B12, and folate. The patient lives in [place] and she was advised that she can either come to our oncology office in [facility] or she can continue to follow up with her primary medical oncologist, Dr. Tompkins in [place]. The patient's questions were answered to her satisfaction. Thank you for asking my opinion. MD JANAE Varghese/katarzyna , 08:06 PM , 08:20 PM [place]
[2018-01-04 05:33] LABS: Mean Corpuscular HGB Conc 31.9 % (32.0-36.0); Mean Corpuscular Hemoglobin 25.7 pg (27.0-34.0); Mean Corpuscular Volume 80.6 fL (80.0-100.0); Mean Platelet Volume 8.7 fL (7.0-11.0); Platelet Count 157 th/mm3 (150-450); Red Cell Distribution Width 20.5 % (11.6-17.2); White Blood Count 7.4 th/mm3 (4.0-11.0)
[2018-01-04 06:02] LABS: Albumin 2.5 g/dL (3.4-5.0); Calcium 8.1 mg/dL (8.5-10.1); Carbon Dioxide 27.1 meq/L (21.0-32.0); Potassium 3.4 meq/L (3.5-5.1); Total Protein 6.8 g/dL (6.4-8.2)
[2018-01-04] MEDS: Folic Acid 1 MG Tablet PO SCH (09:16)
[2018-01-04] MEDS: Isosorbide Mononitrate 30 MG ER 24HR Tablet (Imdur) PO SCH (09:16)
[2018-01-04] MEDS: Furosemide 40 MG Tablet PO SCH ×2 (09:17→22:45)
[2018-01-04] MEDS: Calcium Carbonate 500 MG Tablet PO SCH ×2 (09:17→22:50)
[2018-01-04] MEDS: Anastrozole 1 MG Tablet PO SCH (09:17)
[2018-01-04] MEDS: Iron Sucrose Inj 200 MG in Sodium Chlor 0.9% Inj 100 ML IV.SIG SCH (09:19)
[2018-01-04] MEDS: Insulin NovoLOG Aspart Correctional Sugar Inj SQ SCH ×4 (09:20→22:50)
[2018-01-04] MEDS: Pantoprazole Inj 80 MG in Sodium Chlor 0.9% Inj 100 ML IV.CONT SCH (09:22)
[2018-01-04] MEDS: Sucralfate 1 GM Tablet PO SCH ×2 (09:25→16:59)
--- NOTE | 2018-01-04 13:46 | P.PNIM ---
Subjective Interval history: Patient reports she is feeling better today. She denies any abdominal pain, no nausea, no vomiting. No bowel movements. Physical Exam Vital signs: Vital Signs 01/03/18 16:00 01/03/18 20:00 01/04/18 00:00 Temperature 98.5 F 98.5 F 98 F Pulse Rate 71 70 74 Respiratory Rate 20 20 20 Blood Pressure 124/57 L 87/48 L 117/52 L Pulse Oximetry 93 L 97 96 01/04/18 02:12 01/04/18 02:13 01/04/18 02:14 Temperature Pulse Rate 67 61 58 L Respiratory Rate Blood Pressure 116/57 L 108/53 L 81/49 L Pulse Oximetry 01/04/18 04:23 01/04/18 08:20 01/04/18 12:00 Temperature 98.7 F 98.5 F 98.4 F Pulse Rate 62 63 58 L Respiratory Rate 18 18 19 Blood Pressure 101/49 L 102/51 L 129/67 Pulse Oximetry 98 98 98 Intake & Output 01/03/18 01/04/18 01/04/18 18:59 06:59 18:59 Intake Total 300 / 300 960 / 960 100 / 100 Balance 300 / 300 960 / 960 100 / 100 Weight 103.6 kg 105.1 kg Intake: IV 100 / 100 100 / 100 Protonix Inj 80 MG In NS Inj 100 / 100 100 / 100 100 ML @ 10 mls/hr IV.CONT CONT [facility] Rx#:[id number] Oral 960 / 960 Anesthesia Amount 200 / 200 Other: # Voids 4 Date of Last Bowel Movement 01/02/18 01/03/18 01/03/18 Weight On Admission 103.6 kg Narrative: GENERAL: well nourished patient in no acute distress. CARDIOVASCULAR: Regular rate and rhythm. RESPIRATORY: No accessory muscle use. bilateral basilar crackles, otherwise CTA in the rest of the lung pérez. GASTROINTESTINAL: Abdomen soft, non-tender, nondistended. Hepatic and splenic margins not palpable. MUSCULOSKELETAL: Extremities without clubbing, cyanosis, or edema. No obvious deformities. NEUROLOGICAL: Awake and alert. No obvious cranial nerve deficits. Motor grossly within normal limits. Normal speech Results - Labs CBC & Chem 7: 01/04/18 04:06 01/04/18 04:06 Laboratory Results - last 24 hr 01/03/18 01/03/1801/03/18 12:15 14:10 19:57 WBC 8.2 RBC 3.55 L Hgb 9.0 L Hct 28.2 L MCV 79.4 L MCH 25.5 L MCHC 32.1 RDW 19.9 H Plt Count 205 MPV 8.8 Sodium Potassium Chloride Carbon Dioxide Anion Gap BUN Creatinine Estimated GFR POC Glucose 229 H Random Glucose Calcium Iron 38 L TIBC 395 % Saturation 9.6 L Ferritin 35 Total Bilirubin Direct Bilirubin Indirect Bilirubin AST ALT Alkaline Phosphatase Total Protein Albumin Vitamin B12 1369 H Folate Greater than 20.0 H 01/04/18 01/04/18 01/04/18 04:06 04:06 08:24 WBC 7.4 RBC 3.10 L Hgb 8.0 L Hct 25.0 L MCV 80.6 MCH 25.7 L MCHC 31.9 L RDW 20.5 H Plt Count 157 MPV 8.7 Sodium 140 Potassium 3.4 L Chloride 102 Carbon Dioxide 27.1 Anion Gap 11 BUN 24 H Creatinine 1.39 H Estimated GFR 37 L POC Glucose 169 H Random Glucose 139 H Calcium 8.1 L D Iron TIBC % Saturation Ferritin Total Bilirubin 0.7 Direct Bilirubin 0.3 H Indirect Bilirubin 0.4 AST 21 ALT 18 Alkaline Phosphatase 86 Total Protein 6.8 D Albumin 2.5 L D Vitamin B12 Folate 01/04/18 12:13 WBC RBC Hgb Hct MCV MCH MCHC RDW Plt Count MPV Sodium Potassium Chloride Carbon Dioxide Anion Gap BUN Creatinine Estimated GFR POC Glucose 239 H Random Glucose Calcium Iron TIBC % Saturation Ferritin Total Bilirubin Direct Bilirubin Indirect Bilirubin AST ALT Alkaline Phosphatase Total Protein Albumin Vitamin B12 Folate Assessment and Plan - Plan 77 y/o female with a medical history significant for atrial fibrillation on Coumadin, history of bilateral pulmonary embolus 7 years ago on chronic anticoagulation with Coumadin, history of breast cancer, diabetes, diastolic heart failure and history of colorectal cancer status post ascending colectomy February 2015 presented to the ED with complaints of black tarry stools for 3 days. Acute blood loss/symptomatic anemia secondary to GI bleeding -Appreciate GI following. 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 -Advance diet as tolerated -S/P two units of PRBC transfusion. Status post vitamin K -Hematology following. Patient receiving IV iron therapy for iron deficiency per hematology. -Follow H&H - Continue PPI Afib, chronic -Monitor telemetry -Cont home metoprolol -Restart Coumadin today. Diabetes, chronic -Accu checks with SSI -Hold home medications while in hospital Acute on chronic diastolic CHF: Likely secondary to acute blood loss anemia -Patient received PRBC transfusion. Monitor for fluid overload -Continue Lasix, Toprol. -Fluid status stable today. Non obstructive Cholelithiasis and choledocholithiasis on CT: - No ductal dilation . - LFTs normalized. - GI input appreciated. CKD: Stable. Continue to monitor. DVT prophylaxis: Coumadin restarted Discharge Planning: Follow-up H&H in a.m. Pending completion of iron infusion. Will need home health.
--- NOTE | 2018-01-04 13:52 | P.DCO ---
- Diagnosis (1) Physical deconditioning Status: Acute (2) GI bleed Status: Acute (3) Diabetes Status: Chronic (4) Diastolic CHF Status: Chronic - Physical Therapy Order: Evaluate and treat, Improve ambulation, Strength and gait training - Home Health Nursing Order: Medical education, Signs/symptoms of disease process, CHF education - Case Management Consult Yes - Certification I have seen patient Anna Mera on 01/04/18. My clinical findings support the need for the requested home health care services because: Deconditioned with increased weakness I certify that my clinical findings support that this patient is homebound because: Unsteady gait/balance, Poor cardiac reserve (2) GI bleed Qualifiers: GI bleed type/associated pathology: unspecified gastrointestinal hemorrhage type Qualified Code(s): K92.2 - Gastrointestinal hemorrhage, unspecified (3) Diabetes Qualifiers: Diabetes mellitus type: type 2 Diabetes mellitus fci insulin use: without superintendent [employer] oil [employer] use Diabetes mellitus complication status: without complication Qualified Code(s): E11.9 - Type 2 diabetes mellitus without complications (4) Diastolic CHF Qualifiers: Heart failure chronicity: chronic Qualified Code(s): I50.32 - Chronic diastolic (congestive) heart failure
--- NOTE | 2018-01-04 14:36 | P.PNONC ---
Subjective Interval history: Patient sitting on bedside, eating lunch. She reports she feels like she has more energy today. Currently getting iron infusion. Status post EGD yesterday. She denies any bleeding, has not had a bowel movement yet. Reports mild dyspnea on exertion-no change from her previous state. Objective Vital Signs/Intake & Output: Vital Signs 01/03/18 16:00 01/03/18 20:00 01/04/18 00:00 Temperature 98.5 F 98.5 F 98 F Pulse Rate 71 70 74 Respiratory Rate 20 20 20 Blood Pressure 124/57 L 87/48 L 117/52 L Pulse Oximetry 93 L 97 96 01/04/18 02:12 01/04/18 02:13 01/04/18 02:14 Temperature Pulse Rate 67 61 58 L Respiratory Rate Blood Pressure 116/57 L 108/53 L 81/49 L Pulse Oximetry 01/04/18 04:23 01/04/18 08:20 01/04/18 12:00 Temperature 98.7 F 98.5 F 98.4 F Pulse Rate 62 63 58 L Respiratory Rate 18 18 19 Blood Pressure 101/49 L 102/51 L 129/67 Pulse Oximetry 98 98 98 Intake & Output 01/03/18 01/04/18 01/04/18 18:59 06:59 18:59 Intake Total 300 / 300 960 / 960 100 / 100 Balance 300 / 300 960 / 960 100 / 100 Weight 103.6 kg 105.1 kg Intake: IV 100 / 100 100 / 100 Protonix Inj 80 MG In NS Inj 100 / 100 100 / 100 100 ML @ 10 mls/hr IV.CONT CONT FIGUEROA Rx#:[id number] Oral 960 / 960 Anesthesia Amount 200 / 200 Other: # Voids 4 Date of Last Bowel Movement 01/02/18 01/03/18 01/03/18 Weight On Admission 103.6 kg Result Diagrams: 01/04/18 04:06 01/04/18 04:06 Laboratory Results: Laboratory Results - last 24 hr 01/03/18 01/03/18 01/03/18 12:15 14:10 19:57 WBC 8.2 RBC 3.55 L Hgb 9.0 L Hct 28.2 L MCV 79.4 L MCH 25.5 L MCHC 32.1 RDW 19.9 H Plt Count 205 MPV 8.8 Sodium Potassium Chloride Carbon Dioxide Anion Gap BUN Creatinine Estimated GFR POC Glucose 229 H Random Glucose Calcium Iron 38 L TIBC 395 % Saturation 9.6 L Ferritin 35 Total Bilirubin Direct Bilirubin Indirect Bilirubin AST ALT Alkaline Phosphatase Total Protein Albumin Vitamin B12 1369 H Folate Greater than 20.0 H 01/04/18 01/04/18 01/04/18 04:06 04:06 08:24 WBC 7.4 RBC 3.10 L Hgb 8.0 L Hct 25.0 L MCV 80.6 MCH 25.7 L MCHC 31.9 L RDW 20.5 H Plt Count 157 MPV 8.7 Sodium 140 Potassium 3.4 L Chloride 102 Carbon Dioxide 27.1 Anion Gap 11 BUN 24 H Creatinine 1.39 H Estimated GFR 37 L POC Glucose 169 H Random Glucose 139 H Calcium 8.1 L D Iron TIBC % Saturation Ferritin Total Bilirubin 0.7 Direct Bilirubin 0.3 H Indirect Bilirubin 0.4 AST 21 ALT 18 Alkaline Phosphatase 86 Total Protein 6.8 D Albumin 2.5 L D Vitamin B12 Folate 01/04/18 12:13 WBC RBC Hgb Hct MCV MCH MCHC RDW Plt Count MPV Sodium Potassium Chloride Carbon Dioxide Anion Gap BUN Creatinine Estimated GFR POC Glucose 239 H Random Glucose Calcium Iron TIBC % Saturation Ferritin Total Bilirubin Direct Bilirubin Indirect Bilirubin AST ALT Alkaline Phosphatase Total Protein Albumin Vitamin B12 Folate Medications: Active Medications Generic Name Dose Route Start Last Admin Trade Name Freq PRN Reason Stop Dose Admin Anastrozole 1 mg 01/02/18 09:00 01/04/18 09:17 Arimidex PO 1 mg DAILY FIGUEROA Administration Calcium Carbonate 500 mg 01/02/18 09:00 01/04/18 09:17 Oscal PO 500 mg BID FIGUEROA Administration Folic Acid 1 mg 01/02/18 09:00 01/04/18 09:16 Folic Acid PO 1 mg DAILY FIGUEROA Administration Furosemide 40 mg 01/02/18 09:00 01/04/18 09:17 Lasix PO 40 mg BID FIGUEROA Administration Iron Sucrose 200 mg/ Sodium 110 mls @ 110 mls/hr 01/04/18 09:00 01/04/18 09: 19 Chloride IV.SIG 01/06/18 09:59 110 mls/hr DAILY FIGUEROA Administration Insulin Aspart 0 unit 01/01/18 21:00 01/04/18 12:41 Novolog Insulin Correctional Sugar Inj SQ 3 unit ACHS FIGUEROA Administration Protocol Isosorbide Mononitrate 30 mg 01/02/18 09:00 01/04/18 09:16 Imdur PO 30 mg DAILY FIGUEROA Administration Metoprolol Succinate 12.5 mg 01/02/18 09:00 01/04/18 09:18 Toprol Xl PO 12.5 mg DAILY FIGUEROA Administration Midodrine 5 mg 01/01/18 21:00 01/04/18 12:41 Proamatine PO 5 mg QID FIGUEROA Administration Potassium Chloride 10 meq 01/02/18 09:00 01/04/18 09:16 Klor-Con 10 PO 10 meq BID FIGUEROA Administration Pravastatin Sodium 20 mg 01/02/18 09:00 01/04/18 09:17 Pravachol PO 20 mg DAILY FIGUEROA Administration Pravastatin Sodium 20 mg 01/02/18 21:00 01/03/18 21:30 Pravachol PO 20 mg HS FIGUEROA Administration Ropinirole HCl 0.5 mg 01/02/18 21:00 01/03/18 21:30 Requip PO 0.5 mg HS FIGUEROA Administration Sodium Chloride 2 ml 01/01/18 21:00 01/04/18 09:18 Ns Flush IV.FLUSH Not Given BID FIGUEROA Sucralfate 1 gm 01/02/18 08:15 01/04/18 09:25 Carafate PO 1 gm BIDAC FIGUEROA Administration Objective Remarks: GENERAL: Obese elderly female, in no acute distress SKIN: Pale, warm and dry. HEAD: Normocephalic. EYES: No scleral icterus. No injection or drainage. NECK: Supple, trachea midline. CARDIOVASCULAR: Regular rate and rhythm without murmurs. RESPIRATORY: Posterior breath sounds clear, equal bilaterally. No accessory muscle use. GASTROINTESTINAL: Abdomen large, soft, non-tender, nondistended. EXTREMITIES: No cyanosis, or edema. MUSCULOSKELETAL: Adequate muscle tone. NEUROLOGICAL: No obvious focal deficit. Awake, alert, and oriented x3. PSYCHIATRIC: Appropriate mood and affect; insight and judgment normal. Assessment/Plan - Plan Recommendations: 1. Microcytic hypochromic anemia, likely secondary to gastrointestinal blood loss, iron deficiency. 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 Currently receiving IV iron. 2. Patient is established with a oncologist in [place], in which she will follow -up for future iron infusions. 3. Repeat CBC in the a.m. - Attending Statement The exam, history, and the medical decision-making described in the above note were completed with the assistance of the mid-level provider. I reviewed and agree with the findings presented. I attest that I had a [id number] encounter with the patient on the same day, and personally performed and documented my assessment and findings in the medical record. Patient is feeling much better She had iron infusion today and has tolerated well Second iron infusion tomorrow Iron studies show iron deficiency anemia despite of having multiple blood transfusions Patient will be followed up by her primary tumbler tender oncologist in [place] when she is discharged to home
[2018-01-05 04:30] VITALS: RESP 18
[2018-01-05 06:16] LABS: Baso # (Auto) 0.1 th/mm3 (0.0-0.2); Baso % (Auto) 0.9 % (0.0-2.0); Eos # (Auto) 0.3 th/mm3 (0.0-0.4); Eos % (Auto) 4.4 % (0.0-4.0); Hematocrit 25.2 % (35.0-46.0); Hemoglobin 8.1 gm/dL (11.6-15.3); Lymph # (Auto) 2.4 th/mm3 (1.0-4.8); Mean Corpuscular HGB Conc 32.2 % (32.0-36.0); Mean Corpuscular Hemoglobin 25.5 pg (27.0-34.0); Mean Corpuscular Volume 79.2 fL (80.0-100.0); Mean Platelet Volume 8.5 fL (7.0-11.0); Mono # (Auto) 0.6 th/mm3 (0.0-0.9); Mono % (Auto) 9.6 % (0.0-8.0); Neut # (Auto) 3.3 th/mm3 (1.8-7.7); Neut % (Auto) 49.1 % (16.0-70.0); Platelet Count 156 th/mm3 (150-450); Red Blood Count 3.18 mil/mm3 (4.00-5.30); Red Cell Distribution Width 20.3 % (11.6-17.2); White Blood Count 6.7 th/mm3 (4.0-11.0)
[2018-01-05 06:27] LABS: INR 1.1 Ratio; Prothrombin Time 11.4 sec (9.8-11.6)
[2018-01-05 06:43] LABS: Albumin 2.8 g/dL (3.4-5.0); Calcium 8.8 mg/dL (8.5-10.1); Potassium 3.6 meq/L (3.5-5.1)
[2018-01-05 06:46] LABS: Total Protein 7.1 g/dL (6.4-8.2)
[2018-01-05] MEDS: Folic Acid 1 MG Tablet PO SCH (08:56)
[2018-01-05] MEDS: Isosorbide Mononitrate 30 MG ER 24HR Tablet (Imdur) PO SCH (08:57)
[2018-01-05] MEDS: Calcium Carbonate 500 MG Tablet PO SCH (08:58)
[2018-01-05] MEDS: Anastrozole 1 MG Tablet PO SCH (08:59)
[2018-01-05] MEDS: Sucralfate 1 GM Tablet PO SCH (08:59)
[2018-01-05] MEDS: Furosemide 40 MG Tablet PO SCH (09:00)
[2018-01-05] MEDS: Iron Sucrose Inj 200 MG in Sodium Chlor 0.9% Inj 100 ML IV.SIG SCH (09:10)
[2018-01-05] MEDS: Insulin NovoLOG Aspart Correctional Sugar Inj SQ SCH ×2 (09:11→12:39)
--- NOTE | 2018-01-05 11:37 | P.PNIM ---
Physical Exam Vital signs: Vital Signs 01/04/18 12:00 01/04/18 15:40 01/04/18 18:31 Temperature 98.4 F 98.1 F Pulse Rate 58 L 62 Respiratory Rate 19 19 Blood Pressure 129/67 116/54 L Pulse Oximetry 98 98 95 01/04/18 19:32 01/04/18 20:16 01/04/18 23:20 Temperature 98.6 F 98.1 F Pulse Rate 53 L 53 L Respiratory Rate 22 22 Blood Pressure 104/53 L 106/63 Pulse Oximetry 95 95 97 01/05/18 01:00 01/05/18 03:54 01/05/18 08:00 Temperature 97.7 F 98.4 F Pulse Rate 59 L 62 Respiratory Rate 17 18 18 Blood Pressure 119/54 L Pulse Oximetry 96 93 L 01/05/18 09:15 Temperature Pulse Rate Respiratory Rate Blood Pressure Pulse Oximetry 96 Intake & Output 01/04/18 01/05/18 01/05/18 18:59 06:59 18:59 Intake Total 290 / 290 960 / 960 Balance 290 / 290 960 / 960 Weight 105.7 kg Intake: IV 290 / 290 Protonix Inj 80 MG In NS Inj 180 / 180 100 ML @ 10 mls/hr IV.CONT CONT FIGUEROA Rx#:[id number] Venofer Inj 200 MG In NS Inj 110 / 110 100 ML @ 110 mls/hr IV.SIG DAILY FIGUEROA Rx#:[id number] Oral 960 / 960 Other: # Voids 4 Date of Last Bowel Movement 01/03/18 01/04/18 # Bowel Movements 1 Results - Labs CBC & Chem 7: 01/05/18 05:57 01/05/18 05:57 Laboratory Results - last 24 hr 01/04/18 01/04/18 01/04/18 12:13 16:48 22:37 WBC RBC Hgb Hct MCV MCH MCHC RDW Plt Count MPV Neut % (Auto) Lymph % (Auto) [place] % (Auto) Eos % (Auto) Baso % (Auto) Neut # (Auto) Lymph # (Auto) [place] # (Auto) Eos # (Auto) Baso # (Auto) WBC Differential Differential Comment PT INR Sodium Potassium Chloride Carbon Dioxide Anion Gap BUN Creatinine Estimated GFR POC Glucose 239 H 154 H 242 H Random Glucose Calcium Total Bilirubin Direct Bilirubin Indirect Bilirubin AST ALT Alkaline Phosphatase Total Protein Albumin 01/05/18 01/05/18 01/05/18 05:57 05:57 05:57 WBC 6.7 RBC 3.18 L Hgb 8.1 L Hct 25.2 L MCV 79.2 L MCH 25.5 L MCHC 32.2 RDW 20.3 H Plt Count 156 MPV 8.5 Neut % (Auto) 49.1 Lymph % (Auto) 36.0 [place] % (Auto) 9.6 H Eos % (Auto) 4.4 H Baso % (Auto) 0.9 Neut # (Auto) 3.3 Lymph # (Auto) 2.4 [place] # (Auto) 0.6 Eos # (Auto) 0.3 Baso # (Auto) 0.1 WBC Differential . Differential Comment Auto diff final PT 11.4 INR 1.1 Sodium 138 Potassium 3.6 Chloride 100 Carbon Dioxide 31.0 Anion Gap 7 BUN 22 H Creatinine 1.23 H Estimated GFR 42 L POC Glucose Random Glucose 143 H Calcium 8.8 Total Bilirubin 0.6 Direct Bilirubin 0.2 Indirect Bilirubin 0.4 AST 24 ALT 19 Alkaline Phosphatase 90 Total Protein 7.1 Albumin 2.8 L 01/05/18 09:03 WBC RBC Hgb Hct MCV MCH MCHC RDW Plt Count MPV Neut % (Auto) Lymph % (Auto) [place] % (Auto) Eos % (Auto) Baso % (Auto) Neut # (Auto) Lymph # (Auto) [place] # (Auto) Eos # (Auto) Baso # (Auto) WBC Differential Differential Comment PT INR Sodium Potassium Chloride Carbon Dioxide Anion Gap BUN Creatinine Estimated GFR POC Glucose 265 H Random Glucose Calcium Total Bilirubin Direct Bilirubin Indirect Bilirubin AST ALT Alkaline Phosphatase Total Protein Albumin Assessment and Plan - Assessment (1) Physical deconditioning Code(s): R53.81 - Other malaise Status: Acute (2) GI bleed Code(s): K92.2 - Gastrointestinal hemorrhage, unspecified Status: Acute (3) Diabetes Code(s): E11.9 - Type 2 diabetes mellitus without complications Status: Chronic (4) Diastolic CHF Code(s): I50.30 - Unspecified diastolic (congestive) heart failure Status: Chronic - Plan 77 y/o female with a medical history significant for atrial fibrillation on Coumadin, history of bilateral pulmonary embolus 7 years ago on chronic anticoagulation with Coumadin, history of breast cancer, diabetes, diastolic heart failure and history of colorectal cancer status post ascending colectomy February 2015 presented to the ED with complaints of black tarry stools for 3 days. Acute blood loss/symptomatic anemia secondary to GI bleeding -Appreciate GI following. 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 -Advance diet as tolerated -S/P two units of PRBC transfusion. Status post vitamin K -Hematology following. Patient receiving IV iron therapy for iron deficiency per hematology. -Follow H&H - Continue PPI Afib, chronic -Monitor telemetry -Cont home metoprolol -Restart Coumadin today. Diabetes, chronic -Accu checks with SSI -Hold home medications while in hospital Acute on chronic diastolic CHF: Likely secondary to acute blood loss anemia -Patient received PRBC transfusion. Monitor for fluid overload -Continue Lasix, Toprol. -Fluid status stable today. Non obstructive Cholelithiasis and choledocholithiasis on CT: - No ductal dilation . - LFTs normalized. - GI input appreciated. CKD: Stable. Continue to monitor. DVT prophylaxis: Coumadin restarted Discharge Planning: Follow-up H&H in a.m. Pending completion of iron infusion. Will need home health. (2) GI bleed Qualifiers: GI bleed type/associated pathology: unspecified gastrointestinal hemorrhage type Qualified Code(s): K92.2 - Gastrointestinal hemorrhage, unspecified (3) Diabetes Qualifiers: Diabetes mellitus type: type 2 Diabetes mellitus snf insulin use: without intermodal dispatcher use Diabetes mellitus complication status: without complication Qualified Code(s): E11.9 - Type 2 diabetes mellitus without complications (4) Diastolic CHF Qualifiers: Heart failure chronicity: chronic Qualified Code(s): I50.32 - Chronic diastolic (congestive) heart failure
--- NOTE | 2018-01-05 12:55 | P.DS ---
Date of admission: 01/01/18 17:46 Primary care physician: Wm Crystal Brief History from admission: HPI as documented by the admitting provider 77 y/o female with a medical history significant for atrial fibrillation on Coumadin, history of bilateral pulmonary embolus 7 years ago on 8 chronic anticoagulation with Coumadin, history of breast cancer, diabetes, diastolic heart failure and history of colorectal cancer status post ascending colectomy February 2015 presented to the ED with complaints of black tarry stools for 3 days. She was recently discharged from [facility] where she was rehabbed after a hospital stay for anemia. She followed up with her explosives engineer today and was found to have a hemoglobin of 7. She states she was discharged on iron pills but due to constipation she stopped taking them 3 days ago. She is complaining of generalized fatigue, she states she has been straining due to the constipation but denies any hematochezia. She has abdominal discomfort but no true pain she states. She denies any chest pain, sob,fever, chills, nausea or vomiting. She follows with Dr. Mcmullen. Patient update on day of discharge: Patient reports she is feeling much better today. She is eager to go home. DS: Diagnosis - Discharge Diagnosis (1) Physical deconditioning Status: Acute (2) GI bleed Status: Acute (3) Diabetes Status: Chronic (4) Diastolic CHF Status: Chronic DS: Summary Hospital Course: 77 y/o female with a medical history significant for atrial fibrillation on Coumadin, history of bilateral pulmonary embolus 7 years ago on chronic anticoagulation with Coumadin, history of breast cancer, diabetes, diastolic heart failure and history of colorectal cancer status post ascending colectomy February 2015 presented to the ED with complaints of black tarry stools for 3 days. Evaluation and treatment course detailed below: Acute blood loss/symptomatic anemia secondary to GI bleeding -Appreciate GI. 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 -S/P two units of PRBC transfusion. Status post vitamin K -Hematology followed the patient. She received IV iron supplementation x2. To follow-up outpatient with her electronic bench technician in [place] - Continue PPI Afib, chronic -Monitor telemetry -Cont home metoprolol -Restarted Coumadin. Outpatient follow-up for INR monitoring. Diabetes, chronic -Accu checks with SSI -Resume home medications on discharge. Acute on chronic diastolic CHF: Likely secondary to acute blood loss anemia -Patient received PRBC transfusion. Treated with Lasix. -Continue Lasix, Toprol. Non obstructive Cholelithiasis and choledocholithiasis on CT: - No ductal dilation . - LFTs normalized. - GI input appreciated. Can have outpatient follow-up with repeat imaging CKD: Stable. - Time Spent with Patient Total time spent providing and/or coordinating discharge services: Greater than 30 minutes - Quality: VTE Deep Vein Thrombosis/Pulmonary Embolism Present on Admission: Yes Exam Vital signs: Vital Signs 01/04/18 15:40 01/04/18 18:31 01/04/18 19:32 Temperature 98.1 F 98.6 F Pulse Rate 62 53 L Respiratory Rate 19 22 Blood Pressure 116/54 L 104/53 L Pulse Oximetry 98 95 95 01/04/18 20:16 01/04/18 23:20 01/05/18 01:00 Temperature 98.1 F Pulse Rate 53 L Respiratory Rate 22 17 Blood Pressure 106/63 Pulse Oximetry 95 97 01/05/18 03:54 01/05/18 08:00 01/05/18 09:15 Temperature 97.7 F 98.4 F Pulse Rate 59 L 62 Respiratory Rate 18 18 Blood Pressure 119/54 L Pulse Oximetry 96 93 L 96 Intake & Output 01/04/18 01/05/18 01/05/18 18:59 06:59 18:59 Intake Total 290 / 290 960 / 960 110 / 110 Balance 290 / 290 960 / 960 110 / 110 Weight 105.7 kg Intake: IV 290 / 290 110 / 110 Protonix Inj 80 MG In NS Inj 180 / 180 100 ML @ 10 mls/hr IV.CONT CONT FIGUEROA Rx#:[id number] Venofer Inj 200 MG In NS Inj 110 / 110 110 / 110 100 ML @ 110 mls/hr IV.SIG DAILY FIGUEROA Rx#:[id number] Oral 960 / 960 Other: # Voids 4 Date of Last Bowel Movement 01/03/18 01/04/18 # Bowel Movements 1 Narrative: GENERAL: well nourished patient in no acute distress. CARDIOVASCULAR: Regular rate and rhythm. RESPIRATORY: No accessory muscle use. bilateral basilar crackles, otherwise CTA in the rest of the lung pérez. GASTROINTESTINAL: Abdomen soft, non-tender, nondistended. Hepatic and splenic margins not palpable. MUSCULOSKELETAL: Extremities without clubbing, cyanosis, or edema. No obvious deformities. NEUROLOGICAL: Awake and alert. No obvious cranial nerve deficits. Motor grossly within normal limits. Normal speech Results Procedures completed during hospitalization: See summary. Labs on day of discharge: Labs from last 24 hours 01/05/18 01/05/18 01/05/18 12:20 09:03 05:57 WBC RBC Hgb Hct MCV MCH MCHC RDW Plt Count MPV Neut % (Auto) Lymph % (Auto) [place] % (Auto) Eos % (Auto) Baso % (Auto) Neut # (Auto) Lymph # (Auto) [place] # (Auto) Eos # (Auto) Baso # (Auto) WBC Differential Differential Comment PT INR Sodium 138 Potassium 3.6 Chloride 100 Carbon Dioxide 31.0 Anion Gap 7 BUN 22 H Creatinine 1.23 H Estimated GFR 42 L POC Glucose 256 H 265 H Random Glucose 143 H Calcium 8.8 Total Bilirubin 0.6 Direct Bilirubin 0.2 Indirect Bilirubin 0.4 AST 24 ALT 19 Alkaline Phosphatase 90 Total Protein 7.1 Albumin 2.8 L 01/05/18 01/05/18 01/04/18 05:57 05:57 22:37 WBC 6.7 RBC 3.18 L Hgb 8.1 L Hct 25.2 L MCV 79.2 L MCH 25.5 L MCHC 32.2 RDW 20.3 H Plt Count 156 MPV 8.5 Neut % (Auto) 49.1 Lymph % (Auto) 36.0 [place] % (Auto) 9.6 H Eos % (Auto) 4.4 H Baso % (Auto) 0.9 Neut # (Auto) 3.3 Lymph # (Auto) 2.4 [place] # (Auto) 0.6 Eos # (Auto) 0.3 Baso # (Auto) 0.1 WBC Differential . Differential Comment Auto diff final PT 11.4 INR 1.1 Sodium Potassium Chloride Carbon Dioxide Anion Gap BUN Creatinine Estimated GFR POC Glucose 242 H Random Glucose Calcium Total Bilirubin Direct Bilirubin Indirect Bilirubin AST ALT Alkaline Phosphatase Total Protein Albumin 01/04/18 16:48 WBC RBC Hgb Hct MCV MCH MCHC RDW Plt Count MPV Neut % (Auto) Lymph % (Auto) [place] % (Auto) Eos % (Auto) Baso % (Auto) Neut # (Auto) Lymph # (Auto) [place] # (Auto) Eos # (Auto) Baso # (Auto) WBC Differential Differential Comment PT INR Sodium Potassium Chloride Carbon Dioxide Anion Gap BUN Creatinine Estimated GFR POC Glucose 154 H Random Glucose Calcium Total Bilirubin Direct Bilirubin Indirect Bilirubin AST ALT Alkaline Phosphatase Total Protein Albumin - Impressions ITS Impressions Chest X-Ray 01/01/18 15:32 CONCLUSION: 1. Cardiomegaly with slight central pulmonary vascular congestion. Abdomen X-Ray 01/01/18 15:50 CONCLUSION: No evidence of acute process or significant stool retention. Abdomen/Pelvis CT 01/03/18 00:00 CONCLUSION: 1. Cirrhosis. 2. Cholelithiasis and choledocholithiasis. No ductal dilatation. 3. Atrophy of the left kidney. 4. Small bilateral pleural effusions. Discharge Plan - Discharge Disposition Patient Disposition: /Home Health Service - Discharge Condition Condition: Good - Discharge Order Discharge Orders: Discharge Order (Routine); Ordered 01/05/18 Ordered By: Lala Dupree - Discharge Details Discharge Comment: Follow up with your explosives engineer in [place]. - Physicians Team Primary Care Provider: Wm Crystal Attending Provider: Lala Dupree Other Providers: Esther Magana MD ; Mariela Sierra Beatrice, MD ; Becca Galvan MD
[2018-01-05 13:10] VITALS: BP 129/59; PULSE 61; TEMP 98.1; O2SAT 95
== END 2018-01-05 16:00 | disposition home health service (06) ==
LOC: NEPC 14:03 → NEDA 17:46 → NEPFCDU 23:04 → N06 01-03 14:21
PROVIDERS: ADMIT Family Medicine; ATTEND Family Medicine
PROC: PANENDO (2018-01-03 09:40)